=== PATIENT | female | born 1985 | race Caucasian/White ===

== ENCOUNTER 2018-10-16 11:40 | Emergency (ER) | payer BC, OTHER ==
[~2018-10-16] VITALS: Ht 157.5 cm; Wt 142.0 kg
--- OUTSIDE RECORDS SUMMARY | 2018-10-16 11:45 | XMS REPORT | Continuity of Care Document ---
Author Organization Unknown Address Unknown Phone Unavailable Allergies There is no data. Medications There is no data. Problems There is no data. Procedures There is no data. Results Test Result Range TESTOSTERONE, TOTAL, LC/MS/MS - 12/18/16 12:28 TESTOSTERONE, TOTAL, LC/MS/MS 43 ng/dL 2-45 BMP - 04/09/17 11:59 GLUCOSE 100 mg/dL 65-99 UREA NITROGEN (BUN) 10 mg/dL 7-25 CREATININE 0.64 mg/dL 0.50-1.10 eGFR NON-AFR. CUBAN 117 mL/min/1.73m2 > OR=60 eGFR 136 mL/min/1.73m2 > OR=60 BUN/CREATININE RATIO NOT APPLICABLE (calc) 6-22 SODIUM 136 mmol/L 135-146 POTASSIUM 4.2 mmol/L 3.5-5.3 CHLORIDE 99 mmol/L 98-110 CARBON DIOXIDE 28 mmol/L 20-31 CALCIUM 10.0 mg/dL 8.6-10.2 CULTURE, ANAEROBIC AND AEROBIC - 06/16/18 10:35 CULTURE, ANAEROBIC BACTERIA W/GRAM STAIN SEE NOTE NRG CULTURE, AEROBIC BACTERIA SEE NOTE NRG CBC - 07/06/18 08:11 WHITE BLOOD CELL COUNT 9.5 Thousand/uL 3.8-10.8 RED BLOOD CELL COUNT 5.70 Million/uL 3.80-5.10 HEMOGLOBIN 15.4 g/dL 11.7-15.5 HEMATOCRIT 47.0 % 35.0-45.0 MCV 82.5 fL 80.0-100.0 MCH 27.0 pg 27.0-33.0 MCHC 32.8 g/dL 32.0-36.0 RDW 14.2 % 11.0-15.0 PLATELET COUNT 313 Thousand/uL 140-400 MPV 10.5 fL 7.5-12.5 ABSOLUTE NEUTROPHILS 6042 cells/uL 2087-1996 ABSOLUTE LYMPHOCYTES 2708 cells/uL 850-3900 ABSOLUTE MONOCYTES 589 cells/uL 200-950 ABSOLUTE EOSINOPHILS 133 cells/uL 15-500 ABSOLUTE BASOPHILS 29 cells/uL 0-200 NEUTROPHILS 63.6 % NRG LYMPHOCYTES 28.5 % NRG MONOCYTES 6.2 % NRG EOSINOPHILS 1.4 % NRG BASOPHILS 0.3 % NRG TSH - 07/06/18 08:11 TSH 6.45 mIU/L NRG A1C - 07/06/18 08:11 HEMOGLOBIN A1c 8.6 % of total Hgb <5.7 Encounters ACCT No. Visit Date/Time Discharge Status Pt. Type Provider Facility Loc./Unit Complaint [id number] 10/10/2018 16:30:00 10/10/2018 23:59:59 [facility] Outpatient FRANCISCO ARREDONDO [facility] [id number] 07/06/2018 08:15:00 Document Registration [id number] 06/16/2018 08:50:00 Document Registration [id number] 04/09/2017 11:00:00 Document Registration [id number] 12/18/2016 11:00:00 Document Registration
--- OUTSIDE RECORDS SUMMARY | 2018-10-16 11:45 | XMS REPORT ---
Author Author KARLEE MATHEWS [facility] Address [address] [place] [address] Care Team Providers Care General Pediatrician Name Role Phone KARLEE MATHEWS Unavailable PROBLEMS Type Condition ICD9-CM Code [id number] Code Onset Dates Condition Status SNOMED Code Problem Abnormal bleeding in menstrual cycle N93.9 Active 157219622 Problem Polymenorrhea N92.0 Active 15163276 Problem Polycystic ovarian syndrome E28.2 Active 77692550 Problem Essential hypertension I10 Active [id number] ALLERGIES No Known Allergies ENCOUNTERS Encounter Location Date Diagnosis [address] [id number] [place] [id number] Mar, Polymenorrhea N92.0 and Essential hypertension I10 [facility] [place] [address] [place] [address] [id number] [place] [id number] Feb, Polymenorrhea N92.0 and Essential hypertension I10 [facility] [address] [id number] [place] [id number] Dec, Abnormal bleeding in menstrual cycle N93.[address] [id number] [place] [id number] Dec, Polymenorrhea N92.0 ; Essential hypertension I10 ; Tobacco use Z72.0 and Polycystic ovarian syndrome E28.2 IMMUNIZATIONS No Known Immunizations SOCIAL HISTORY Never Assessed REASON FOR VISIT f/u, [facility] PLAN OF CARE Activity Details Follow Up 6 Weeks Reason:BP rehceck VITAL SIGNS Weight 325.1 lbs 2017-02-26 Temperature 98.7 degrees Fahrenheit 2017-02-26 Heart Rate 96 bpm 2017-02-26 Respiratory Rate 20 2017-02-26 Blood pressure systolic 140 mmHg 2017-02-26 Blood pressure diastolic 96 mmHg 2017-02-26 MEDICATIONS Medication Instructions Dosage Frequency Start Date End Date Duration Status Lisinopril 10 mg Orally Once a day 1 tablet 24h Feb, 90 days Active Metformin HCl 500 mg Orally Twice a day 1 tablet with meals 12h Dec, 30 day(s) Active Varenicline Tartrate 0.5 MG X 11 & 1 MG X 42 Orally as directed as directed Dec, Not-Taking Junel 04/03 1-20 MG-MCG Orally Once a day 1 tablet 24h Dec, 21 day(s) Not-Taking Hydrochlorothiazide 50 mg Orally Once a day /2 tablet 24h 30 day(s) Active Provera 10 mg Orally Once a day day 16-21 of the cycle 1 tablet with food Feb, Mar, 7 days Active RESULTS No Results PROCEDURES No Known procedures INSTRUCTIONS MEDICATIONS ADMINISTERED No Known Medications
--- NOTE | 2018-10-16 12:11 | ED Lower Extremity ---
General Chief Complaint: Lower Extremity Stated Complaint: LT ANKLE PAIN Nursing Triage Note: Patient c/o left ankle pain. States the pain started 4 days ago, she was seen in urgent care but unable to get an xray because their machine was broke. Urgent care wrapped her ankle with an noelle wrap and told her to come to the ED for further evaluation if the pain did not improve. She states that the pain has not improved. Nursing Sepsis Screen: No Definite Risk Source: patient History of Present Illness Date Seen by Provider: Oct 16, 2018 Time Seen by Provider: 11:42 Initial Comments 33 yo F presents with 4 day history of left ankle and foot pain that has progressed for her. She has been seen at Urgent care when the pain started and was told to wrap it. She states they did not have xrays done because they told her the Xray machine was "broken" so they did not do one. She continued to have pain and after walking around the mall at [place] yesterday her ankle hurts worse today so she came to the ED. She has not been taking anything for pain. She also has not been using any ice for inflammation or pain. She has not had any prior injury or problem with her ankle before. She states the pain radiates up to her knee. She is a diabetic and has hypertension as well. She was told not to take Ibuprofen because it would make her blood pressure go high. She has no known injury to her ankle or foot to cause the pain. Allergies and Home Medications Allergies Coded Allergies: No Known Drug Allergies (Unverified , 10/16/18) Home Medications Meloxicam 7.5 Mg Tablet, 7.5 MG PO DAILY Prescribed by: SINDY ADAME on 10/16/18 1245 Patient Home Medication List Home Medication List Reviewed: Yes Review of Systems Constitutional: No chills, No fever EENTM: no symptoms reported Respiratory: no symptoms reported Cardiovascular: no symptoms reported Gastrointestinal: no symptoms reported Genitourinary: no symptoms reported Musculoskeletal: see HPI Skin: other (faint bruise to top of left foot on medial aspect of foot where she is having pain.) Past Necnrwd-Zuwsdp-Qasqru Hx Past Med/Social Hx: Reviewed Nursing Past Med/Soc Hx Patient Social History Recent Foreign Travel: No Contact w/Someone Who Travel: No Recent Infectious Disease Expo: No Physical Abuse: No Sexual Abuse: No Mistreated: No Fear: No Past Medical History High Cholesterol, Hypertension Diabetes, Non-Insulin dep Physical Exam Vital Signs Vital Signs - First Documented 10/16/18 11:47 Temp 97.9 Pulse 97 Resp 18 B/P (MAP) 151/96 (114) Pulse Ox 94 O2 Delivery Room Air Capillary Refill : Less Than 3 Seconds Height, Weight, BMI Height: 5'2.00" Weight: 313lbs. oz. 141.596941za; BMI Method:Stated General Appearance: WD/WN, no apparent distress, obese Cardiovascular: normal peripheral pulses Knees: left knee non-tender, left knee normal inspection, left knee no evidence of injury Ankles: left ankle pain (pain with range of motion of the left ankle and foot), left ankle soft tissue tenderness Feet: left foot ecchymosis (faint bruise to proximal foot on medial aspect that is tender to palpation), left foot pain (pain with range of motion of the left ankle and foot), left foot soft tissue tenderness Neurologic/Tendon: normal sensation (intact to light touch), normal motor functions 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: alert, normal mood/affect, oriented x 3 Skin: normal color, warm/dry Progress/Results/Core Measures Results/Orders My Orders Orders - SINDY ADAME MD Ankle 3 View Left (10/16/18 12:01) Foot 3 View Left (10/16/18 12:01) Gel Ankle Brace (10/16/18 12:56) Crutches (10/16/18 12:56) Vital Signs/I&O 10/16/18 10/16/18 11:47 13:14 Temp 97.9 97.9 Pulse 97 97 Resp 18 18 B/P (MAP) 151/96 (114) 151/96 (114) Pulse Ox 94 94 O2 Delivery Room Air Blood Pressure Mean: 114 Progress Progress Note #1: Progress Note check xrays of the left ankle and foot to evaluate for occult injury or bony abnormality with her being diabetic and hypertensive and obese it is possible she could have some neuropathy and have had some injury that she does not remember or a stress type injury/fracture causing her pain. Counseled pt that if nothing shows on the films she may need more of an MRI or more advance imaging with Jil Arredondo in clinic or Orthopedics referral to look at ligaments and tendons for other source of her pain. Would place in splint for support and provide crutches in the meantime. Counseled that she should be fine to take some intermittent dosing of Ibuprofen for pain and inflammation. Ice and elevation should also help with her pain and any swelling that would develop to contribute to her pain and issues with her ankle and foot. Progress Note #2: Progress Note No acute abnormality on films so will treat with gel splint and crutches for weight bearing as tolerated and meloxicam for inflammation. check in clinic with AMOS Arredondo and follow up. Diagnostic Imaging Diagonstic Imaging: Xray Plain Films/CT/US/NM/MRI: ankle (and foot) Comments NAME: MARYJANE BREAUX MED REC#: [id number] PT STATUS: REG ER : 1985 PHYSICIAN: SINDY ADAME MD ADMIT DATE: 10/16/18/ER FS Draft Date of Exam:10/16/18 FOOT 3 VIEW LEFT INDICATION: Left foot and ankle pain. No known injury FINDINGS: Four views of the left foot shows no fracture, dislocation or other acute bony abnormality. No degenerative changes are seen. There are no bony erosions. IMPRESSION: No acute abnormality is seen. Dictated on workstation # [id number] Dict: 10/16/18 1224 Trans: 10/16/18 1230 IVAN [id number] Interpreted by: LAMONTE ELLIS MD Electronically signed by: NAME: MARYJANE BREAUX MED REC#: [id number] PT STATUS: REG ER : 1985 PHYSICIAN: SINDY ADAME MD ADMIT DATE: 10/16/18/ER FS Draft Date of Exam:10/16/18 ANKLE 3 VIEW LEFT INDICATION: Left foot and ankle pain. No history of trauma. TECHNIQUE: 3 views. FINDINGS: The left ankle shows ankle mortise to be intact with good preservation of joint space. Thickening surfaces are smooth. There are no fracture. No finding to indicate osteochondritis dissecans. No soft tissue swelling. IMPRESSION: Negative left ankle. Dictated on workstation # [id number] Dict: 10/16/18 1225 Trans: 10/16/18 1230 ACB [id number] Interpreted by: RAJENDRA AVILA MD Electronically signed by: Departure Impression Primary Impression: Sprain of other ligament of left ankle, initial encounter Additional Impression: Other sprain of left foot, initial encounter Disposition: 01 HOME, SELF-CARE Condition: Stable Departure-Patient Inst. Decision time for Depature: 12:41 Referrals: FRANCISCO ARREDONDO APRN (PCP) Primary Care Physician Patient Instructions: Ankle Sprain (DC), Foot Sprain (DC), How to Use Crutches Add. Discharge Instructions: Use splint to help support your ankle and foot. Use crutches for weight bearing as tolerated on your ankle and foot. Follow up with Jil Arredondo in the clinic for further evaluation Use Mobic for inflammation and pain for the next 2 weeks All discharge instructions reviewed with patient and/or family. Voiced understanding. Scripts Meloxicam (Meloxicam) 7.5 Mg Tablet 7.5 MG PO DAILY for 14 Days, #14 TAB 0 Refills Prov: SINDY ADAME MD 10/16/18 SINDY ADAME MD Oct 16, 2018 12:11
--- NOTE | 2018-10-16 12:30 | Diagnostic Imaging Report ---
INDICATION: Left foot and ankle pain. No history of trauma. TECHNIQUE: 3 views. FINDINGS: The left ankle shows ankle mortise to be intact with good preservation of joint space. Thickening surfaces are smooth. There are no fracture. No finding to indicate osteochondritis dissecans. No soft tissue swelling. IMPRESSION: Negative left ankle. Dictated by: Dictated on workstation # [id number]
--- NOTE | 2018-10-16 12:31 | Diagnostic Imaging Report ---
INDICATION: Left foot and ankle pain. No known injury FINDINGS: Four views of the left foot shows no fracture, dislocation or other acute bony abnormality. No degenerative changes are seen. There are no bony erosions. IMPRESSION: No acute abnormality is seen. Dictated by: Dictated on workstation # [id number]
[2018-10-16] MEDS ORDERED: MELO7.5T46 PO (12:45)
[2018-10-16 13:14] VITALS: BP 151/96
== END 2018-10-16 13:13 | disposition home or self-care (01) ==
LOC: ER FS 11:42
DX: S93.492A Sprain of other ligament of left ankle, initial encounter (principal); S93.692A Other sprain of left foot, initial encounter; E11.9 Type 2 diabetes mellitus without complications; I10 Essential (primary) hypertension; E78.00 Pure hypercholesterolemia, unspecified; X58.XXXA Exposure to other specified factors, initial encounter
CPT/HCPCS: 73610; 73630

== ENCOUNTER 2020-02-07 16:11 | Emergency (ER) | payer SELFPAY ==
[~2020-02-07 16:11] MED LIST: MELO7.5T46 PO
[2020-02-07] MEDS ORDERED: ACHD5005 PO (17:20)
--- NOTE | 2020-02-07 17:20 | ED EENT ---
History of Present Illness General Chief Complaint: Dental Problems/Pain Stated Complaint: TOOTH PAIN Nursing Triage Note: Started having tooth pain in Right upper and Right lower jaw 3 days ago. Went to urgent care two days ago and was started on antibiotic and magic mouth wash. Is rating pain at 10/10. Has been taking tylenol and naproxen for pain with little relief. Cold water in mouth helps with pain relief. Has impacted wisdom tooth on upper jaw and needs a root canal on lower jaw but has been unable to go to dentist for these issues. History of Present Illness Date Seen by Provider: Feb 07, 2020 Time Seen by Provider: 17:10 Initial Comments Patient presents with right-sided dental pain for 3 days both upper and lower. Chronic condition without any recent injury or significant change. Started on Augmentin 2 days ago from someone at the urgent care, but presenting today due to pain and little relief with czja-xzz-frpeqsc medications. Does not have an appointment to see a dentist. History of similar conditions in the past. No facial swelling or redness, no neck swelling or pain. Allergies and Home Medications Allergies Coded Allergies: No Known Drug Allergies (Unverified , 10/16/18) Home Medications Hydrocodone/Acetaminophen 1 Each Tablet, 1 EACH PO Q4H Prescribed by: DONNIE HUI on 02/07/20 1720 Meloxicam 7.5 Mg Tablet, 7.5 MG PO DAILY Prescribed by: SINDY ADAME on 10/16/18 1245 Patient Home Medication List Home Medication List Reviewed: Yes Review of Systems Review of Systems Constitutional: No dizziness, No fever, No malaise, No weakness Eyes: No Symptoms Reported Ears: No Symptoms Reported Nose: no symptoms reported Mouth: see HPI; denies loose teeth; pain; denies swelling Throat: see HPI, pain (teeth); denies swelling, denies discharge, denies neck stiffness, denies hoarse, denies aphonia, denies muffled, denies painful swallowing, denies difficulty with fluids, denies previous injury Respiratory: No cough, No dyspnea on exertion Cardiovascular: No chest pain, No edema, No palpitations Past Ztylxil-Nwpeed-Smearc Hx Past Med/Social Hx: Reviewed Nursing Past Med/Soc Hx Patient Social History Alcohol Use: Denies Use Recreational Drug Use: No Smoking Status: Current Everyday Smoker Type Used: Cigarettes 2nd Hand Smoke Exposure: No Recent Foreign Travel: No Contact w/Someone Who Travel: No Recent Infectious Disease Expo: No Recent Hopitalizations: No Seasonal Allergies Seasonal Allergies: No Past Medical History Surgeries: No Respiratory: No Cardiac: Yes High Cholesterol, Hypertension Neurological: No Genitourinary: No Gastrointestinal: No Musculoskeletal: No Endocrine: Yes Diabetes, Non-Insulin dep HEENT: No Cancer: No Psychosocial: No Integumentary: No Blood Disorders: No Physical Exam Vital Signs Vital Signs - First Documented 02/07/20 16:28 Temp 36.7 Pulse 93 Resp 16 B/P (MAP) 151/88 (109) Pulse Ox 96 Height, Weight, BMI Height: 5'2.00" Weight: 313lbs. oz. 141.791849uv; BMI Method:Stated General Appearance: WD/WN, no apparent distress Eyes: bilateral eye normal inspection, bilateral eye PERRL, bilateral eye EOMI Ears: bilateral ear auricle normal, bilateral ear canal normal, bilateral ear TM normal Nose: normal inspection; No discharge Mouth/Throat: pharynx normal, dental tenderness (R upper post molar and R lower post molar without abscess. mild swelling gingiva. Obvious cavity formation both upper and lower.) Neck: non-tender, supple, normal inspection; No lymphadenopathy (R) Skin: normal color, warm/dry Progress/Results/Core Measures Results/Orders Vital Signs/I&O 02/07/20 02/07/20 16:28 17:37 Temp 36.7 Pulse 93 73 Resp 16 16 B/P (MAP) 151/88 (109) 152/83 Pulse Ox 96 96 Blood Pressure Mean: 109 Departure Impression Primary Impression: Dental caries Additional Impression: Pain, dental Disposition: HOME, SELF-CARE Condition: Stable Departure-Patient Inst. Decision time for Depature: 17:18 Referrals: FRANCISCO ARREDONDO APRN (PCP) Primary Care Physician Patient Instructions: Dental Pain (DC) Add. Discharge Instructions: Follow up with your Dentist next week. Continue taking your antibiotic as instructed All discharge instructions reviewed with patient and/or family. Voiced understanding. Scripts Hydrocodone/Acetaminophen (Hydrocodone-Acetamin 5-325 mg) 1 Each Tablet 1 EACH PO Q4H for Abdominal Pain, #10 TAB Prov: DONNIE HUI DO 02/07/20 DONNIE HUI DO Feb 07, 2020 17:20
[2020-02-07 17:37] VITALS: BP 152/83
== END 2020-02-07 17:37 | disposition home or self-care (01) ==
LOC: EDUNIT# 16:11 → ER FS 16:11
DX: K02.9 Dental caries, unspecified (principal); F17.210 Nicotine dependence, cigarettes, uncomplicated
CPT/HCPCS: 99282

== ENCOUNTER 2020-08-20 20:21 | Emergency (ER) | payer SELFPAY ==
[~2020-08-20 20:21] MED LIST changes: +ACHD5005 PO
--- NOTE | 2020-08-20 20:59 | ED Upper Extremity ---
General Chief Complaint: Upper Extremity Stated Complaint: LT SHOULDER/ARM ACHING Nursing Triage Note: Pt complaining of left lower arm pain that radiates to her left shoulder. Pt states the pain started around 2300 last night and progressed throughout the day today Nursing Sepsis Screen: No Definite Risk History of Present Illness Date Seen by Provider: Aug 20, 2020 Time Seen by Provider: 20:43 Initial Comments 35 y/o female w left upper back and shoulder pain since last night. Worse w movement, better by positional changes. Has taken nothing for pain. 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 Denies any injury, recent illness, cough, chest pain or shortness of air. Some radiation of pain from back and shoulder into right arm and hand. Hx of DM and HTN...readily admits she has not taken any of her medications for a month. not out of medication either Allergies and Home Medications Allergies Coded Allergies: No Known Drug Allergies (Unverified , 10/16/18) Home Medications Hydrocodone/Acetaminophen 1 Each Tablet, 1 EACH PO Q4H Prescribed by: DONNIE HUI on 02/07/20 1720 Meloxicam 7.5 Mg Tablet, 7.5 MG PO DAILY Prescribed by: SINDY ADAME on 10/16/18 1245 Patient Home Medication List Home Medication List Reviewed: Yes Review of Systems Constitutional: see HPI; No fever, No malaise, No weakness Respiratory: No cough, No hemoptysis, No orthopnea, No phlegm, No short of breath, No stridor, No wheezing Cardiovascular: No chest pain, No edema, No palpitations, No syncope, No vascular heart diseas Gastrointestinal: No abdominal pain, No loss of appetite, No nausea, No vomiting Musculoskeletal: back pain (left upper); No joint pain; muscle pain (left shoulder area ); No muscle weakness, No neck pain Skin: No change in color, No rash Psychiatric/Neurological: Denies Numbness, Denies Paresthesia; Tingling; Denies Weakness Past Eilzddv-Jslvjc-Szdozd Hx Past Med/Social Hx: Reviewed Nursing Past Med/Soc Hx Patient Social History Alcohol Use: Denies Use Type Used: Cigarettes 2nd Hand Smoke Exposure: No Recent Infectious Disease Expo: No Recent Hopitalizations: No Seasonal Allergies Seasonal Allergies: No Past Medical History Surgeries: No Respiratory: No Cardiac: Yes High Cholesterol, Hypertension Neurological: No Genitourinary: No Gastrointestinal: No Musculoskeletal: No Endocrine: Yes Diabetes, Non-Insulin dep HEENT: No Cancer: No Psychosocial: No Integumentary: No Blood Disorders: No Physical Exam Vital Signs Vital Signs - First Documented 08/20/20 20:23 Temp 37.0 Pulse 94 Resp 18 B/P (MAP) 171/80 (110) Pulse Ox 97 O2 Delivery Room Air Capillary Refill : Less Than 3 Seconds Height, Weight, BMI Height: 5'2.00" Weight: 313lbs. oz. 141.780214qv; BMI Method:Stated General Appearance: WD/WN, no apparent distress, obese Neck: non-tender, full range of motion, supple, normal inspection Cardiovascular: regular rate, rhythm, no edema, no gallop, no JVD Respiratory: chest non-tender, lungs clear, normal breath sounds, no respiratory distress, no accessory muscle use Gastrointestinal: non tender, soft Back: normal inspection, no vertebral tenderness, muscle spasm (left upper trapez and medial scapula) Shoulder: normal inspection, no evidence of injury, normal ROM (but uncomfortable to move) Elbow/Forearm: normal inspection, non-tender, no evidence of injury, normal ROM, Left Wrist: Yes normal inspection, Yes non-tender, Yes no evidence of injury, Yes normal ROM, Yes abrasions Hand: normal inspection, non-tender, no evidence of injury, normal ROM, Left Neurologic/Tendon: normal sensation, normal motor functions, normal tendon functions 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: no motor/sensory deficits, alert, normal mood/affect, oriented x 3 Skin: normal color, warm/dry Progress/Results/Core Measures Results/Orders Vital Signs/I&O 08/20/20 20:23 Temp 37.0 Pulse 94 Resp 18 B/P (MAP) 171/80 (110) Pulse Ox 97 O2 Delivery Room Air Blood Pressure Mean: 110 Departure Impression Primary Impression: Muscle strain of upper back Disposition: 01 HOME, SELF-CARE Condition: Stable Departure-Patient Inst. Decision time for Depature: 20:59 Referrals: FRANCISCO ARREDONDO APRN (PCP/Family) Primary Care Physician Patient Instructions: Back Muscle Strain (DC) Add. Discharge Instructions: Please make an appointment to see your PCP in 1 week, sooner if not improving. If worse, return to the nearest ER. Please RE-start all of your prescribed medications as instructed by your PCP All discharge instructions reviewed with patient and/or family. Voiced understanding. Scripts Cyclobenzaprine HCl (Cyclobenzaprine HCl) 10 Mg Tablet 10 MG PO HS PRN for SPASMS, #15 TAB 0 Refills Prov: DONNIE HUI DO 08/20/20 DONNIE HUI DO Aug 20, 2020 20:59
[2020-08-20] MEDS ORDERED: CYCL10TA9 PO (21:00)
[2020-08-20 21:01] VITALS: BP 171/80
== END 2020-08-20 21:03 | disposition home or self-care (01) ==
LOC: EDUNIT# 20:21 → ER FS 20:22
DX: S29.012A Strain of muscle and tendon of back wall of thorax, initial encounter (principal); E66.9 Obesity, unspecified; I10 Essential (primary) hypertension; E11.9 Type 2 diabetes mellitus without complications; Z68.45 Body mass index [BMI] 70 or greater, adult; X58.XXXA Exposure to other specified factors, initial encounter
CPT/HCPCS: 99282

== ENCOUNTER 2022-11-08 19:26 | Inpatient (IN) | payer BC ==
[~2022-11-08] VITALS: Ht 160.7 cm; Wt 148.3 kg
[~2022-11-08 19:26] MED LIST changes: +CYCL10TA25 PO
[2022-11-08] MEDS ORDERED: LABETALOL 5 mg/ml 4 ML SINGLE DOSE SYRINGE IV ONE ×2 (19:45→20:30)
[2022-11-08 19:47] LABS: BASOPHILS # (AUTO) 0.1 10^3/uL (0.0-0.1); BASOPHILS % (AUTO) 0 % (0-10); EOSINOPHILS % (AUTO) 0 % (0-10); HEMATOCRIT 46 % (35-52); HEMOGLOBIN 15.3 g/dL (11.5-16.0); LYMPHOCYTES # (AUTO) 2.7 10^3/uL (1.0-4.0); LYMPHOCYTES % (AUTO) 23 % (12-44); MEAN CORPUSCULAR HEMOGLOBIN 28 pg (25-34); MEAN CORPUSCULAR HGB CONC 34 g/dL (32-36); MEAN CORPUSCULAR VOLUME 84 fL (80-99); MEAN PLATELET VOLUME 9.8 fL (9.0-12.2); MONOCYTES # (AUTO) 0.6 10^3/uL (0.0-1.0); MONOCYTES % (AUTO) 5 % (0-12); NEUTROPHILS # (AUTO) 8.4 10^3/uL (1.8-7.8); NEUTROPHILS % (AUTO) 71 % (42-75); PLATELET COUNT 244 10^3/uL (130-400); WHITE BLOOD COUNT 11.9 10^3/uL (4.3-11.0)
--- NOTE | 2022-11-08 19:47 | ED Neurological Problem ---
General Stated Complaint: LEFT SIDE NUMB|ABD PAIN Source: patient Exam Limitations: no limitations History of Present Illness Date Seen by Provider: Nov 08, 2022 Time Seen by Provider: 19:30 Initial Comments 37-year-old female with past medical history of diabetes and hypertension coming in due to left-sided numbness. It started at 1 AM this morning mostly in her leg, worked its way up throughout the day, now she has change in sensation in her left arm as well more than 8 hours ago. She says its more difficult to feel cold on that side. Has a mild headache which is not unusual. She states she has not been taking her blood pressure or diabetes medications for months because of money issues. Denies any trauma, chest pain, shortness of breath, severe abdominal pain, nausea, vomiting, diarrhea, focal weakness, or any other concerns. She does not have regular periods since she has PCOS. Allergies and Home Medications Allergies Coded Allergies: No Known Drug Allergies (Unverified , 10/16/18) Patient Home Medication List Home Medication List Reviewed: Yes Cyclobenzaprine HCl (Cyclobenzaprine HCl) 10 Mg Tablet, 10 MG PO HS PRN for SP ASMS Prescribed by: DONNIE HUI on 08/20/20 2100 Hydrocodone/Acetaminophen (Hydrocodone-Acetamin 5-325 mg) 1 Each Tablet, 1 EACH PO Q4H Prescribed by: DONNIE HUI on 02/07/20 1720 Meloxicam (Meloxicam) 7.5 Mg Tablet, 7.5 MG PO DAILY Prescribed by: SINDY ADAME on 10/16/18 1245 Review of Systems Review of Systems Constitutional: No fever Eyes: No Symptoms Reported Ears, Nose, Mouth, Throat: no symptoms reported Respiratory: no symptoms reported Cardiovascular: no symptoms reported Gastrointestinal: no symptoms reported Genitourinary: no symptoms reported Musculoskeletal: no symptoms reported Skin: no symptoms reported Psychiatric/Neurological: See HPI Endocrine: No Symptoms Reported Hematologic/Lymphatic: No Symptoms Reported Past Joxibbs-Ismuun-Htzbqs Hx Patient Social History Tobacco Use?: Yes Seasonal Allergies Seasonal Allergies: No Past Medical History Surgeries: No Respiratory: No Cardiac: Yes High Cholesterol, Hypertension Neurological: No Genitourinary: No Gastrointestinal: No Musculoskeletal: No Endocrine: Yes Diabetes, Non-Insulin dep HEENT: No Cancer: No Psychosocial: No Integumentary: No Blood Disorders: No Physical Exam Vital Signs Vital Signs - First Documented 11/08/22 19:28 Temp 35.6 Pulse 97 Resp 18 B/P (MAP) 257/123 (167) Pulse Ox 94 O2 Delivery Room Air Capillary Refill : Height, Weight, BMI Height: 5'2.00" Weight: 313lbs. oz. 141.491773ml; BMI Method:Stated General Appearance: no apparent distress, obese HEENT: PERRL/EOMI, normal ENT inspection, pharynx normal Neck: non-tender, full range of motion, supple, normal inspection Respiratory: chest non-tender, lungs clear, normal breath sounds, no respiratory distress, no accessory muscle use Cardiovascular: regular rate, rhythm, no edema, no murmur Gastrointestinal: normal bowel sounds, non tender, soft; No distended, No guarding, No rebound Back: normal inspection, no CVA tenderness, no vertebral tenderness Extremities: normal range of motion, non-tender, normal inspection, no pedal edema, no calf tenderness, normal capillary refill 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: 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, alert, normal mood/affect, oriented x 3, other (Left-sided sensation changes in her left upper extremity and left lower extremity, has normal two-point discrimination in both extremities) Crainal Nerves: normal hearing, normal speech, PERRL Coordination/Gait: normal finger to nose, normal gait Motor/Sensory: no motor deficit, no sensory deficit, no pronator drift Skin: normal color, warm/dry Stroke Onset of Symptoms Date of Onset of Symptoms: Nov 08, 2022 Time of Symptom Onset: 01:00 Onset of Symptoms: Yes NIH Stroke Scale Assessment Select: Initial Level of Consciousness: 0=Alert (0), Level of Consciousness- Questions: 0=Answers both month/age (0), LOC Commands: 0=Performs both tasks (0), Gaze: Normal (0), Visual Tanner: 0=No visual loss (0), Facial Movement (Facial Paresis): 0=Normal symmetrical mnt (0), Motor Function-Arms Right: 0=No drift (0), Motor Function-Arms Left: 0=No drift (0), Motor Function-Legs Right: 0=No drift (0), Motor Function-Legs Left: 0=No drift (0), Limb Ataxia: 0=Absent (0), Sensory: 1=Mild to Moderate loss (1), Best Language: 0=No aphas ia (0), Dysarthria: 0=Normal (0), Extinction & Inattention: 0=No abnormality (0), Total: 1 Stroke Thrombolytic Exclusion Age 18 or Over: Yes TPA Contraindication: Yes IV - TPa Received IV - TPa Procedure Performed?: No Progress/Results/Core Measures Results/Orders Lab Results Laboratory Tests Test 11/08/22 19:39 11/08/22 19:42 11/08/22 19:53 Range/Units Glucometer 319 H 70-110 MG/DL White Blood Count 11.9 H 4.3-11.0 10^3/uL Red Blood Count 5.40 H 3.80-5.11 10^6/uL Hemoglobin 15.3 11.5-16.0 g/dL Hematocrit 46 35-52 % Mean Corpuscular Volume 84 80-99 fL Mean Corpuscular Hemoglobin 28 25-34 pg Mean Corpuscular Hemoglobin Concent 34 32-36 g/dL Red Cell Distribution Width 12.9 10.0-14.5 % Platelet Count 244 130-400 10^3/uL Mean Platelet Volume 9.8 9.0-12.2 fL Immature Granulocyte % (Auto) 0 % Neutrophils (%) (Auto) 71 42-75 % Lymphocytes (%) (Auto) 23 12-44 % Monocytes (%) (Auto) 5 0-12 % Eosinophils (%) (Auto) 0 0-10 % Basophils (%) (Auto) 0 0-10 % Neutrophils # (Auto) 8.4 H 1.8-7.8 10^3/uL Lymphocytes # (Auto) 2.7 1.0-4.0 10^3/uL Monocytes # (Auto) 0.6 0.0-1.0 10^3/uL Eosinophils # (Auto) 0.0 0.0-0.3 10^3/uL Basophils # (Auto) 0.1 0.0-0.1 10^3/uL Immature Granulocyte # (Auto) 0.1 0.0-0.1 10^3/uL Prothrombin Time 12.0 L 12.2-14.7 SEC INR Comment 0.8 0.8-1.4 Activated Partial Thromboplast Time 28 24-35 SEC Sodium Level 132 L 135-145 MMOL/L Potassium Level 4.2 3.6-5.0 MMOL/L Chloride Level 96 L 98-107 MMOL/L Carbon Dioxide Level 24 21-32 MMOL/L Anion Gap 12 5-14 MMOL/L Blood Urea Nitrogen 9 7-18 MG/DL Creatinine 0.68 0.60-1.30 MG/DL Estimat Glomerular Filtration Rate 114 BUN/Creatinine Ratio 13 Glucose Level 362 H 70-105 MG/DL Calcium Level 10.0 8.5-10.1 MG/DL Corrected Calcium 9.8 8.5-10.1 MG/DL Total Bilirubin 0.2 0.1-1.0 MG/DL Aspartate Amino Transf (AST/SGOT) 19 5-34 U/L Alanine Aminotransferase (ALT/SGPT) 34 0-55 U/L Alkaline Phosphatase 103 40-136 U/L Troponin I < 0.30 <0.30 NG/ML Total Protein 7.4 6.4-8.2 GM/DL Albumin 4.2 3.2-4.5 GM/DL Serum Test, Qualitative NEGATIVE NEGATIVE Urine Color YELLOW Urine Clarity CLEAR Urine pH 7.0 5-9 Urine Specific [place] 1.010 L 1.016-1.022 Urine Protein NEGATIVE NEGATIVE Urine Glucose (UA) 3+ H NEGATIVE Urine Ketones NEGATIVE NEGATIVE Urine Nitrite NEGATIVE NEGATIVE Urine Bilirubin NEGATIVE NEGATIVE Urine Urobilinogen 0.2 < = 1.0 MG/DL Urine Leukocyte Esterase NEGATIVE NEGATIVE Urine RBC (Auto) NEGATIVE NEGATIVE Urine RBC RARE /HPF Urine WBC RARE /HPF Urine Squamous Epithelial Cells 0-2 /HPF Urine Crystals NONE /LPF Urine Bacteria FEW H /HPF Urine Casts NONE /LPF Urine Mucus NEGATIVE /LPF Urine Culture Indicated NO My Orders Orders - LUIS MURILLO MD Cbc With Automated Diff (11/08/22 19:40) Protime With Inr (11/08/22 19:40) Partial Thromboplastin Time (11/08/22 19:40) Comprehensive Metabolic Panel (11/08/22 19:40) Troponin I Fs (11/08/22 19:40) Ua Culture If Indicated (11/08/22 19:40) Chest 1 View Ap/Pa Only (11/08/22 19:40) Ekg Tracing (11/08/22 19:40) Accucheck Stat ONCE (11/08/22 19:40) Ed Iv/Invasive Line Start (11/08/22 19:40) Vital Signs Stroke Patient Q15M (11/08/22 19:40) Ct Head Wo-R/O Stroke (11/08/22 19:40) O2 (11/08/22 19:40) Monitor-Rhythm Ecg Trace Only (11/08/22 19:40) Dysphagia Screening Tool Q10MX1 (11/08/22 19:40) Labetalol Injection (Sdv) (Labetalol Inj (11/08/22 19:45) Hcg,Qualitative Serum (11/08/22 19:47) Labetalol Injection (Sdv) (Labetalol Inj (11/08/22 20:30) Aspirin Chewable Tablet (Aspirin Chewabl (11/08/22 21:00) Medications Given in ED Current Medications Medications Dose Ordered Sig/Salomon Route Start Time Stop Time Status Last Admin Dose Admin Labetalol HCl 20 mg ONCE ONCE IV 11/08/22 19:45 11/08/22 19:46 DC 11/08/22 20:07 20 MG Labetalol HCl 20 mg ONCE ONCE IV 11/08/22 20:30 11/08/22 20:31 DC 11/08/22 20:33 20 MG Vital Signs/I&O 11/08/22 19:28 Temp 35.6 Pulse 97 Resp 18 B/P (MAP) 257/123 (167) Pulse Ox 94 O2 Delivery Room Air Progress Progress Note : Progress Note 37-year-old female with above history coming in due to left-sided numbness. ABCs were intact and vitals were stable on presentation other than her blood pressure which was 250s systolic on arrival with repeat pressures being the same. NIH was 1 for numbness on the left arm and left leg which was mild. Does not fit a lower back issue given the arm numbness as well. She has a very mild headache. She is out of the window for any type of intervention such as tenecteplase given how long she waited to come to the ER. CT head ordered and interpreted by me showing no obvious hemorrhage or large mass. Chest x-ray ordered and interpreted by me showing no obvious pneumonia or pneumothorax. EKG ordered and interpreted by me showing normal sinus rhythm with no acute ischemic changes. Glucose in the 300s here. An IV was placed and basic labs were obtained and were significant for normal kidney function, negative troponin, urinalysis without evidence of infection. I contacted the neurologist at , Dr. Matta, and he recommended lowering the blood pressure to around 170s systolic and seeing if her symptoms get better. We gave her IV labetalol 20 mg x 2 with repeat assessments and blood pressure did come down, symptoms however persisted. At that time the neurologist recommended admission for an MRI of her brain to see if she has had a stroke, he thought it could be lacunar in origin as a small vessel issue. I discussed this with the patient, she is agreeable. I then contacted Dr. Yao who will admit the patient to the intensive care unit under observation status for further evaluation and management. I then contacted the ICU physician for signout Initial ECG Impression Date: Nov 08, 2022 Initial ECG Impression Time: 19:44 Initial ECG Rate: 93 Initial ECG Rhythm: Normal Sinus Comment Narrow QRS, borderline left axis deviation, no STEMI Diagnostic Imaging Diagonstic Imaging: Xray (chest), CT (head) Comments NAME: MARYJANE BREAUX MED REC#: [id number] PT STATUS: REG ER : 1985 PHYSICIAN: LUIS MURILLO MD ADMIT DATE: 11/08/22/ER FS Signed Date of Exam:11/08/22 CHEST 1 VIEW AP/PA ONLY CHEST 1 VIEW AP/PA ONLY Indication: Stroke Comparison: None available. Findings: No focal airspace disease in the visualized lungs. No pleural effusion or pneumothorax. Normal cardiomediastinal silhouette. Large body habitus results in hazy opacities over the lungs. Impression: 1. No acute cardiopulmonary process by portable radiography. Dictated by: Dictated on workstation # [id number] Dict: 11/08/222003 Trans: 11/08/222004 [facility] [id number] Interpreted by: IRENE AVILA MD Electronically signed by: IRENE AVILA MD 11/08/222004 NAME: MARYJANE BREAUX MED REC#: [id number] PT STATUS: REG ER : 1985 PHYSICIAN: LUIS MURILLO MD ADMIT DATE: 11/08/22/ER FS Signed Date of Exam:11/08/22 CT HEAD WO-R/O STROKE PROCEDURE: CT head wo r/o stroke. TECHNIQUE: Multiple contiguous axial images were obtained through the brain without the use of intravenous contrast. Auto Exposure Controls were utilized during the CT exam to meet ALARA standards for radiation dose reduction. INDICATION: Left-sided numbness and hypertension. COMPARISON: None available. FINDINGS: No hyperdense hemorrhage or space-occupying mass. No hydrocephalus or midline shift. The basilar cisterns are normal. Samano-white matter differentiation is well preserved. The mastoid air cells are clear. Paranasal sinuses are normal. No focal osseous abnormality of the calvarium. IMPRESSION: 1. No acute intracranial process. Dictated by: Dictated on workstation # [id number] Dict: 11/08/222006 Trans: 11/08/222007 [facility] [id number] Interpreted by: IRENE AVILA MD Electronically signed by: IRENE AVILA MD 11/08/222007 Critical Care Note Critical Care Start Time: 19:30 Stop Time: 21:05 Total Time (minutes) 34 Progress All time spent being billed for critical care was separate from procedures. The patient required IV medications to lower her blood pressure due to concerns for stroke and she required frequent reassessments and discussion with other physicians Departure Impression Primary Impression: Hypertensive urgency Disposition: 30 STILL A PATIENT Condition: Stable Admissions Decision to Admit Reason: Admit from ER (General) Decision to Admit/Date: Nov 08, 2022 Time/Decision to Admit Time: 20:55 Departure-Patient Inst. Referrals: MIQUEL LAURA MD (PCP/Family) Primary Care Physician LUIS MURILLO MD Nov 08, 2022 19:47
[2022-11-08 20:07] LABS: BILIRUBIN,URINE NEGATIVE (NEGATIVE); CLARITY,URINE CLEAR; COLOR,URINE YELLOW; GLUCOSE, URINE (UA) 3+ (NEGATIVE); KETONES,URINE NEGATIVE (NEGATIVE); LEUKOCYTE ESTERASE ,URINE NEGATIVE (NEGATIVE); NITRITE,URINE NEGATIVE (NEGATIVE); PROTEIN,URINE NEGATIVE (NEGATIVE)
--- NOTE | 2022-11-08 20:07 | Diagnostic Imaging Report ---
CHEST 1 VIEW AP/PA ONLY Indication: Stroke Comparison: None available. Findings: No focal airspace disease in the visualized lungs. No pleural effusion or pneumothorax. Normal cardiomediastinal silhouette. Large body habitus results in hazy opacities over the lungs. Impression: 1. No acute cardiopulmonary process by portable radiography. Dictated by: Dictated on workstation # [id number]
--- NOTE | 2022-11-08 20:10 | Diagnostic Imaging Report ---
PROCEDURE: CT head wo r/o stroke. TECHNIQUE: Multiple contiguous axial images were obtained through the brain without the use of intravenous contrast. Auto Exposure Controls were utilized during the CT exam to meet ALARA standards for radiation dose reduction. INDICATION: Left-sided numbness and hypertension. COMPARISON: None available. FINDINGS: No hyperdense hemorrhage or space-occupying mass. No hydrocephalus or midline shift. The basilar cisterns are normal. Samano-white matter differentiation is well preserved. The mastoid air cells are clear. Paranasal sinuses are normal. No focal osseous abnormality of the calvarium. IMPRESSION: 1. No acute intracranial process. Dictated by: Dictated on workstation # [id number]
[2022-11-08 20:17] LABS: INR 0.8 (0.8-1.4)
[2022-11-08 20:18] LABS: SODIUM 132 MMOL/L (135-145)
[2022-11-08 20:19] LABS: ALANINE AMINOTRANSFERASE 34 U/L (0-55); ALBUMIN 4.2 GM/DL (3.2-4.5); ALKALINE PHOSPHATASE 103 U/L (40-136); BILIRUBIN,TOTAL 0.2 MG/DL (0.1-1.0); BUN/CREATININE RATIO 13; CARBON DIOXIDE 24 MMOL/L (21-32); CHLORIDE 96 MMOL/L (98-107); CREATININE SERUM 0.68 MG/DL (0.60-1.30); GFR ESTIMATED 114; GLUCOSE 362 MG/DL (70-105); POTASSIUM 4.2 MMOL/L (3.6-5.0); TOTAL PROTEIN 7.4 GM/DL (6.4-8.2)
[2022-11-08 20:21] LABS: BACTERIA,URINE FEW /HPF; RBC,URINE RARE /HPF; SQUAMOUS EPITHELIAL CELL,UR 0-2 /HPF; WBC,URINE RARE /HPF
[2022-11-08] MEDS ORDERED: ASPIRIN 81 MG CHEWABLE TABLET PO ONE (21:00)
[2022-11-08] MEDS ORDERED: ACETAMINOPHEN 325 MG TABLET PO PRN (23:30)
[2022-11-08] MEDS ORDERED: BISACODYL 10 MG SUPPOSITORY PR PRN (23:30)
[2022-11-08] MEDS ORDERED: oxyCODONE IMMEDIATE RELEASE 5 MG TABLET PO PRN (23:30)
[2022-11-08] MEDS ORDERED: LACTULOSE SYRUP 10GM/15ML 30ML UDC PO PRN (23:30)
[2022-11-08] MEDS ORDERED: ONDANSETRON 4 MG ORAL DISSOLVE TABLET PO PRN (23:30)
[2022-11-08] MEDS ORDERED: MELATONIN 3 MG TABLET PO PRN (23:30)
[2022-11-08] MEDS ORDERED: ANTACID SUSPENSION 30 ML UDC PO PRN (23:30)
[2022-11-08] MEDS ORDERED: HYDROmorphone INJECTION 2 MG/ML VIAL IV PRN (23:30)
[2022-11-08] MEDS ORDERED: NS IV 500 ML 500 ML IV PRN (23:30)
[2022-11-08] MEDS ORDERED: diphenhydrAMINE 25 MG TABLET PO PRN (23:30)
[2022-11-08] MEDS ORDERED: diphenhydrAMINE INJ 50 MG/ML VIAL IVP PRN (23:30)
--- NOTE | 2022-11-09 00:06 | Tele-ICU Progress Note ---
Progress Note 37F with HTN, DM who has not taken any of her prescribed medciation for several months due to financial contraints admitted with hypertensive urgency/emergency, hyperglycemia and possible CVA. She had the onset of left leg tingling around 0100 which progressed throughout the day, ascending up the leg and then involving the arm. On presentation to ED found to have BP 250/140. CT head negative. Symptoms did persist after BP improved to 170s. She was outside the window for intervention. [facility] neuro was contacted, recommended correcting BP to around 170 - hypertensive urgency/emergency: has received multiple doses of labetalol with improvement. Now on cardene gtt with goal SBP 160-180. - DM: insulin sliding scale, A1C - CVA: symptoms concerning for mild lacunar infarct. If symptoms worsen with improved BP, will liberalize permissive hypertension. Has received ASA. MRI in AM. Patient assessed via real time audiovisual communication system. CCT 8 min Focused Exam Height, Weight, BMI Height: 5'2.00" Weight: 313lbs. oz. 141.428620gy; 363.94 BMI Method:Stated MIQUEL RAMIREZ MD Nov 09, 2022 00:06
[2022-11-09] MEDS: ALPRAZolam 0.5 MG TABLET PO SCH ×4 (00:29→12:35)
[2022-11-09] MEDS ORDERED: RT-ALBUTEROL SULF 2.5 MG/3 ML PRE-MIX VIAL INH PRN (00:30)
[2022-11-09] MEDS: NICARDIPINE IV SCH (02:53)
[2022-11-09] MEDS: NS IV SCH (02:53)
[2022-11-09 04:42] LABS: BASOPHILS % (AUTO) 0 % (0-10); EOSINOPHILS # (AUTO) 0.1 10^3/uL (0.0-0.3); EOSINOPHILS % (AUTO) 1 % (0-10); HEMATOCRIT 46 % (35-52); HEMOGLOBIN 15.4 g/dL (11.5-16.0); LYMPHOCYTES # (AUTO) 4.3 10^3/uL (1.0-4.0); LYMPHOCYTES % (AUTO) 40 % (12-44); MEAN CORPUSCULAR HEMOGLOBIN 29 pg (25-34); MEAN CORPUSCULAR HGB CONC 34 g/dL (32-36); MEAN CORPUSCULAR VOLUME 85 fL (80-99); MEAN PLATELET VOLUME 10.1 fL (9.0-12.2); MONOCYTES # (AUTO) 0.6 10^3/uL (0.0-1.0); MONOCYTES % (AUTO) 6 % (0-12); NEUTROPHILS # (AUTO) 5.6 10^3/uL (1.8-7.8); NEUTROPHILS % (AUTO) 52 % (42-75); PLATELET COUNT 237 10^3/uL (130-400); WHITE BLOOD COUNT 10.8 10^3/uL (4.3-11.0)
[2022-11-09 04:53] LABS: POTASSIUM 4.1 MMOL/L (3.6-5.0)
[2022-11-09 04:54] LABS: CALCIUM 9.3 MG/DL (8.5-10.1)
[2022-11-09 04:56] LABS: TOTAL PROTEIN 7.1 GM/DL (6.4-8.2)
[2022-11-09 04:57] LABS: BILIRUBIN,TOTAL 0.2 MG/DL (0.1-1.0)
[2022-11-09 04:59] LABS: CREATININE SERUM 0.69 MG/DL (0.60-1.30); PHOSPHORUS 3.3 MG/DL (2.3-4.7)
[2022-11-09] MEDS: MAGNESIUM 1 GM/100 ML IVPB 100 ML IV SCH (05:50)
[2022-11-09] MEDS: POTASSIUM CL 10MEQ/50ML IVPB 50 ML IV SCH (05:50)
[2022-11-09] MEDS: POTASSIUM CHLORIDE 20 MEQ TABLET PO SCH (05:50)
[2022-11-09] MEDS: inSUlin ASPART 1 UNIT/0.01 ML (PER UNIT) SC SCH ×4 (06:24→21:05)
[2022-11-09] MEDS: DOCUSATE SODIUM 100 MG CAPSULE PO SCH ×2 (08:31→21:05)
[2022-11-09] MEDS: ENOXAPARIN 60 MG/0.6 ML SYRINGE SC SCH ×2 (08:31→21:04)
[2022-11-09] MEDS ORDERED: ASPIRIN 325 MG TABLET PO SCH (09:00)
[2022-11-09] MEDS ORDERED: RT-ALBUINH INH (10:17)
[2022-11-09] MEDS ORDERED: ACET-2267 PO (10:17)
--- NOTE | 2022-11-09 10:35 | Tele-ICU Progress Note ---
Subjective Date Seen by a Provider: Nov 09, 2022 Time Seen by a Provider: 10:35 Subjective/Events-last exam (Tele-ICU Physician , Progress Note ) Service provided via interactive audio and video telecommunications E-CARE system to a patient admitted to ICU bed in [facility]. Patient is seen today due to persistent need of ICU care Available chart/ vitals / labs / Images reviewed Video assessment done using teleICU camera, rest of exam as per RN Discussed with RN Events overnight : , seen br Dr Ramirez earlier this night A/P 37F with HTN, DM who has not taken any of her prescribed medciation for several months due to financial contraints admitted with hypertensive urgency/emergency, hyperglycemia and possible CVA. She had the onset of left leg tingling around 0100 which progressed throughout the day, ascending up the leg and then involving the arm. On presentation to ED found to have BP 250/140. CT head negative. Symptoms did persist after BP improved to 170s. She was outside the window for intervention. [facility] neuro was contacted, recommended correcting BP to around 170 - hypertensive urgency/emergency: has received multiple doses of labetalol with improvement. Now on cardene gtt with goal SBP 160-180. - DM: insulin sliding scale, A1C - CVA: symptoms concerning for mild lacunar infarct. If symptoms worsen with improved BP, will liberalize permissive hypertension. Has received ASA. MRI pending - [facility] - onserved , needs w/up Lines : periph , (Central Line Necessity Reviewed) Lema: voley OG: Nutrition: Analgesia: Anxiety/ delirium VTE Prophylaxis: margo proph Stress Ulcer Prophylaxis: Plans in collaboration with bedside consultants and IM MDs. Discussed with RN to reach out if any questions or concerns Case and care daily discussed on multidisciplinary rounds ( RN, PharmD, Weight Engineer , Respiratory Therapy, driver/sales workers ) A total of 25 minutes of critical care time was devoted to this patient today, required to treat and/or prevent further deterioration of critical care condition ( as above ) - including Dr RAMIREZ time last night I am remotely monitoring this patient from another state. I am unable to do the bedside exam, and history/physical and pertinent information is taken from other notes in the computer and bedside staff. Sepsis Event Evaluation Height, Weight, BMI Height: 5'2.00" Weight: 313lbs. oz. 141.265661dd; 54.64 BMI Method:Stated Exam Exam Patient acknowledged, consented, and participated in this virtual visit which was conducted using real time audio/video Vital Signs Date Time Temp Pulse Resp B/P (MAP) Pulse Ox O2 Delivery O2 Flow Rate FiO2 11/09/22 10:00 77 22 187/115 (139) 97 Room Air 11/09/22 09:00 65 174/101 (125) 98 Room Air 11/09/22 08:00 35.6 11/09/22 08:00 98 Room Air 11/09/22 08:00 64 172/113 (132) 98 Room Air 11/09/22 07:39 79 11/09/22 07:00 61 166/99 (121) 90 Room Air 11/09/22 06:00 70 155/93 (113) 97 Room Air 11/09/22 05:00 64 22 144/93 (110) 90 Room Air 11/09/22 04:00 65 158/86 (110) 88 Room Air 11/09/22 04:00 36.2 11/09/22 03:41 93 Room Air 11/09/22 03:05 100 Room Air 11/09/22 03:00 20 20 156/109 (125) 95 Room Air 11/09/22 02:53 59 193/103 11/09/22 02:00 63 28 193/103 (133) 91 Room Air 11/09/22 01:02 62 11/09/22 01:00 59 23 172/115 (134) 92 Room Air 11/09/22 00:18 96 21 11/09/22 00:00 35.8 11/09/22 00:00 61 15 176/101 (126) 96 Room Air 11/08/22 23:30 96 Room Air 11/08/22 23:30 68 15 162/109 (126) 96 Room Air 11/08/22 23:24 67 11/08/22 23:15 165/97 (119) 11/08/22 22:16 66 20 186/98 96 Room Air 11/08/22 19:28 35.6 97 18 257/123 (167) 94 Room Air I & O 11/09/22 07:00 Intake Total 400 ml Output Total 1700 ml Balance -1300 ml Height & Weight Height: 5'2.00" Weight: 313lbs. oz. 141.116066jd; 54.64 BMI Method:Stated General Appearance: Other Capillary Refill: Less Than 3 Seconds Gastrointestinal: normal bowel sounds, non tender, soft; No distended, No guarding, No rebound Results Lab Laboratory Tests 11/08/22 19:42 11/09/22 04:27 Assessment/Plan Assessment/Plan 1 RICHARD SOTELO MD Nov 09, 2022 10:35
--- NOTE | 2022-11-09 10:40 | ST Dysphagia Evaluation ---
Speech Evaluation-General Medical Diagnosis Stroke Like Symptoms Onset Date: Nov 08, 2022 Therapy Diagnosis Therapy Diagnosis: Intact Oropharyngeal Swallow Function Precautions Precautions: Fall, Pressure Ulcer, Aspiration Precautions/Isolations: Aspiration, Fall Prevention, Standard Precautions, Pressure Ulcer Referral Referring Physician: Dr. Tapia Reason for Referral: Evaluation/Treatment Medical History Pertinent Medical History: DM, HTN Reviewed History: Yes Speech PLF/Current-Dysphagia Prior Level of Function The patient denied prior challenges or difficulties with her oropharyngeal swallowing function. Per patient, she consumes a regular consistency diet with thin liquids. Subjective The patient was seated upright in bed, awake and alert, upon entrance to her room by the clinician. The patient greeted the clinician appropriately and was agreeable to participation in the clinical bedside swallowing evaluation. The patient reports mild hesitation to the onset of the pharyngeal swallow and a globus sensation with solid consistencies which she localizes to the laryngeal region. Cognitive Status Patient Orientation: Person, Place, Time, Situation Oral Motor Skills Dentition: Natural Current Food Consistancy: Regular, Thin Liquids Ability to Follow Directions: Excellent Oral Expression Ability: No Impairment Voice Voice Phonatory-Based Quality: Normal Voice Pitch: Normal Voice Loudness: Normal Face Facial Symmetry: Symmetrical Oral-Facial Assessment Oral-Facial Dentition: Normal Labial Seal Description: Normal Smile: Normal Lingual Protrusion: Normal Lingual ROM: Normal Lingual Strength: Normal Volitional Dry Swallow: Yes Dysphagia Evaluation Consistencies Presented: Regular, Thin Liquid, Pureed The patient does not display oral impairments to the swallow function. The patient reports a slight delay to the pharyngeal onset. Pharyngeal impairments were not appreciated by the clinician throughout the study. The patient does not display s/s of suspected aspiration with thin liquids, puree or solid consistencies throughout the bedside swallow evaluation. Dietary Recommendations: Regular Liquid Recommendations: Thin Recommendations: - Regular consistency diet with thin liquids, as tolerated. - Fully upright and alert for P.O. intake. - Avoid problematic consistencies (dry solids). - Provide additional sauces and gravies to solid consistencies to aid in sharita neil. - Small, single bites and sips. - Alternate bites and sips on a 1:1 ratio. - Place medication in puree for administration, as necessary. - Monitor for s/s of suspected aspiration with P.O. intake. If demonstrated, please contact speech pathology. The results and recommendations were provided to the patient and the patient's RN immediately following completion. Speech Short Term Goals Short Term Goals Short Term Goals 1. The patient will display safe swallowing precautions with 90% accuracy, independently. Time Frame-STG: Three Days. Speech Radio Equipment Repairer Goals Custodial Goals 1. The patient will tolerate the least restrictive diet consistency without s/s of suspected aspiration. Time Frame: Five Days. Speech-Plan Treatment Plan Speech Therapy Treatment Plan: Continue Plan of Care Treatment Duration: Nov 13, 2022 Frequency: 2 times per week Estimated Hrs Per Day: .25 hour per day Rehab Potential: Good Pt/Family Agrees to Plan: Yes Safety Risks/Education Teaching Recipient: Patient Teaching Methods: Discussion Response to Teaching: Verbalize Understanding Education Topics Provided: Results, Recommendations, Plan of Care, Safe Swallowing Precautions Time Speech Therapy Time In: 10:00 Speech Therapy Time Out: 10:20 DATE: Nov 09, 2022 Total Billed Time: 20 Billed Treatment Time 1, SAMANTA DANIELSON [facility] Nov 09, 2022 10:40
--- NOTE | 2022-11-09 10:55 | History & Physical ---
HPI History of Present Illness: 37-year-old female who presented to the ED on 11/08 with chief complaint of left- sided numbness. She reports that at 1 AM yesterday, she woke up and had numbness in her left leg, later that day it had spread upwards to her left hip. She went to urgent care and was told she had sciatica. The numbness then spread up to her left arm, leading to her presentation to the ED. On admit she was found to have a systolic BP in the 250s. She reports that she is supposed to be taking metformin, rosuvastatin, and lisinopril, but has not taken these since May due to financial issues. She was given two 20mg IV doses of labetalol, which brought her BP to the 170s, without improvement of symptoms. CT was normal, and at time of presentation the patient was outside of the therapeutic window. neurology was contacted who recommended keeping BP in the 170s and following with an MRI, which is scheduled for later today. Patient is sleeping while entering the room, easily aroused. Patient reports that she is feeling well overall, but is still having numbness on the left side. She reports that sensation to touch is intact, but altered. She reports that she cannot feel hot or cold on her left side. Patient was snoring loudly when entering the room, no episodes of apnea noted, reports that she has never been tested for sleep apnea. Patient states that she been having some dysphagia, states there is some pain when swallowing, no sensation of sticking or difficulty initiating swallowing. BP has been maintained on a nicardipine drip around 170s. Nursing reports that her BP has been variable and required changes in the titration of the nicardipine. Patient has no new complaints. Source: patient Exam Limitations: no limitations Date seen by provider: Nov 09, 2022 Time Seen by Provider: 09:30 Attending Physician Shelly Conde MD PCP Admitting Physician: Yanni Yao DO Attending Physician: Tatum Tapia MD Consult Date of Admission Nov 08, 2022 at 23:10 Home Medications Home Medications Reviewed patient Home Medication Reconciliation performed by pharmacy medication reconciliations budget technician and/or nursing. Patients Allergies have been reviewed. 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: [employer] Review of Systems ([facility]) Constitutional: No chills, No fever EENTM: No hearing loss, No blurred vision Respiratory: No cough; dyspnea on exertion (Pt states chronic issue, unchanged from baseline); No short of breath Gastrointestinal: No diarrhea, No nausea, No vomiting Genitourinary: No dysuria, No incontinence Musculoskeletal: No back pain, No neck pain Skin: No change in color, No change in hair/nails Psychiatric/Neurological: Headache (Mild headache this morning, states improved from yesterday), Paresthesia (Left leg and arm, left side of torso), Other (Reports not being able to feel temperature on left leg, left arm, left side of torso) Reviewed Test Results Reviewed Test Results Lab Laboratory Tests 11/08/22 19:39: Glucometer 319H 11/08/22 19:42: White Blood Count 11.9H, Red Blood Count 5.40H, Hemoglobin 15.3, Hematocrit 46, Mean Corpuscular Volume 84, Mean Corpuscular Hemoglobin 28, Mean Corpuscular Hemoglobin Concent 34, Red Cell Distribution Width 12.9, Platelet Count 244, Mean Platelet Volume 9.8, Immature Granulocyte % (Auto) 0, Neutrophils (%) (Auto) 71, Lymphocytes (%) (Auto) 23, Monocytes (%) (Auto) 5, Eosinophils (%) (Auto) 0, Basophils (%) (Auto) 0, Neutrophils # (Auto) 8.4H, Lymphocytes # (Auto) 2.7, Monocytes # (Auto) 0.6, Eosinophils # (Auto) 0.0, Basophils # (Auto) 0.1, Immature Granulocyte # (Auto) 0.1, Prothrombin Time 12.0L, INR Comment 0.8, Activated Partial Thromboplast Time 28, Sodium Level 132L, Potassium Level 4.2, Chloride Level 96L, Carbon Dioxide Level 24, Anion Gap 12, Blood Urea Nitrogen 9, Creatinine 0.68, Estimat Glomerular Filtration Rate 114, BUN/Creatinine Ratio 13, Glucose Level 362H, Calcium Level 10.0, Corrected Calcium 9.8, Total Bilirubin 0.2, Aspartate Amino Transf (AST/SGOT) 19, Alanine Aminotransferase (ALT/SGPT) 34, Alkaline Phosphatase 103, Troponin I < 0.30, Total Protein 7.4, Albumin 4.2, Serum Test, Qualitative NEGATIVE 11/08/22 19:53: Urine Color YELLOW, Urine Clarity CLEAR, Urine pH 7.0, Urine Specific [place] 1.010L, Urine Protein NEGATIVE, Urine Glucose (UA) 3+H, Urine Ketones NEGATIVE, Urine Nitrite NEGATIVE, Urine Bilirubin NEGATIVE, Urine Urobilinogen 0.2, Urine Leukocyte Esterase NEGATIVE, Urine RBC (Auto) NEGATIVE, Urine RBC RARE, Urine WBC RARE, Urine Squamous Epithelial Cells 0-2, Urine Crystals NONE, Urine Bacteria FEWH, Urine Casts NONE, Urine Mucus NEGATIVE, Urine Culture Indicated NO 11/09/22 04:27: White Blood Count 10.8, Red Blood Count 5.38H, Hemoglobin 15.4, Hematocrit 46, Mean Corpuscular Volume 85, Mean Corpuscular Hemoglobin 29, Mean Corpuscular Hemoglobin Concent 34, Red Cell Distribution Width 13.1, Platelet Count 237, Mean Platelet Volume 10.1, Immature Granulocyte % (Auto) 0, Neutrophils (%) (Auto) 52, Lymphocytes (%) (Auto) 40, Monocytes (%) (Auto) 6, Eosinophils (%) (Auto) 1, Basophils (%) (Auto) 0, Neutrophils # (Auto) 5.6, Lymphocytes # (Auto) 4.3H, Monocytes # (Auto) 0.6, Eosinophils # (Auto) 0.1, Basophils # (Auto) 0.0, Immature Granulocyte # (Auto) 0.0, Sodium Level 136, Potassium Level 4.1, Chloride Level 103, Carbon Dioxide Level 23, Anion Gap 10, Blood Urea Nitrogen 8, Creatinine 0.69, Estimat Glomerular Filtration Rate 113, BUN/Creatinine Ratio 12, Glucose Level 211H, Calcium Level 9.3, Corrected Calcium 9.3, Total Bilirubin 0.2, Aspartate Amino Transf (AST/SGOT) 16, Alanine Aminotransferase (ALT/SGPT) 30, Alkaline Phosphatase 72, Total Protein 7.1, Albumin 4.0, Phosphorus Level 3.3, Magnesium Level 2.0, Triglycerides Level 187H, Cholesterol Level 189, LDL Cholesterol Direct 145H, VLDL Cholesterol 37, HDL Cholesterol 39L Physical Exam-([facility]) Physical Exam Vital Signs VS - Last 72 Hours, by Label 11/08/22 11/08/22 11/08/22 11/08/22 19:28 22:16 23:15 23:24 Temp 35.6 Pulse 97 66 67 Resp 18 20 B/P (MAP) 257/123 (167) 186/98 165/97 (119) Pulse Ox 94 96 O2 Delivery Room Air Room Air 11/08/22 11/08/22 11/09/22 11/09/22 23:30 23:30 00:00 00:00 Temp 35.8 Pulse 68 61 Resp 15 15 B/P (MAP) 162/109 (126) 176/101 (126) Pulse Ox 96 96 96 O2 Delivery Room Air Room Air Room Air 11/09/22 11/09/22 11/09/22 11/09/22 00:18 01:00 01:02 02:00 Pulse 59 62 63 Resp 23 28 B/P (MAP) 172/115 (134) 193/103 (133) Pulse Ox 96 92 91 O2 Delivery Room Air Room Air FiO2 21 11/09/22 11/09/22 11/09/22 11/09/22 02:53 03:00 03:05 03:41 Pulse 59 20 Resp 20 B/P (MAP) 193/103 156/109 (125) Pulse Ox 95 100 93 O2 Delivery Room Air Room Air Room Air 11/09/22 11/09/22 11/09/22 11/09/22 04:00 04:00 05:00 06:00 Temp 36.2 Pulse 65 64 70 Resp 22 B/P (MAP) 158/86 (110) 144/93 (110) 155/93 (113) Pulse Ox 88 90 97 O2 Delivery Room Air Room Air Room Air 11/09/22 11/09/22 11/09/22 11/09/22 07:00 07:39 08:00 08:00 Pulse 61 79 64 B/P (MAP) 166/99 (121) 172/113 (132) Pulse Ox 90 98 98 O2 Delivery Room Air Room Air Room Air 11/09/22 11/09/22 11/09/22 08:00 09:00 10:00 Temp 35.6 Pulse 65 77 Resp 22 B/P (MAP) 174/101 (125) 187/115 (139) Pulse Ox 98 97 O2 Delivery Room Air Room Air Capillary Refill : Less Than 3 Seconds General Appearance: WD/WN, no apparent distress, obese HEENT: PERRL/EOMI, pharynx normal (mild erythema) Neck: non-tender, supple Respiratory: chest non-tender, lungs clear, normal breath sounds Cardiovascular: regular rate, rhythm, no murmur Gastrointestinal: non tender, soft Back: no vertebral tenderness Extremities: non-tender, no pedal edema, other (Altered sensation left arm/leg) 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: alert, oriented x 3, sensory deficit (Loss of temperature sensation, left side) Skin: normal color, warm/dry Lymphatic: no adenopathy (cervical) Assessment/Plan Assessment/Plan Admission Dx Hypertensive urgency Admission Status: Observation Assessment & Plan Hypertensive urgency - Currently maintained on nicardipine drip, target BP 170s systolic per [facility] neuro recommendation, will restart oral home dose lisinopril CVA - CT showed no sign of infarct, MRI today Non-insulin dependent T2DM: Currently on SSI HLD: resume home dose rosuvastatin Dysphagia: Speech therapist evaluation today for swallowing eval Jointer Machine Operator consult ordered Clinical Quality Measures Stroke: Date of last known well: Nov 08, 2022 Time of last known well: 01:00 SAMARA GONZALES Nov 09, 2022 10:55
--- NOTE | 2022-11-09 14:22 | Physical Therapy Evaluation ---
PT Evaluation-General Medical Diagnosis Admission Date Nov 08, 2022 at 23:10 Medical Diagnosis: Stroke Like Symptoms Onset Date: Nov 08, 2022 Therapy Diagnosis Therapy Diagnosis: Gait deficit, Strength deficit Height/Weight Height (Feet): 5 Height (Inches): 2.00 Weight (Pounds): 313 Precautions Precautions/Isolations: Aspiration, Fall Prevention, Standard Precautions, Pressure Ulcer Weight Bear Status Right Lower Extremity: Right Full Weight Bearing Left Lower Extremity: Left Full Weight Bearing Referral Physician: Dr. Yao Reason for Referral: Evaluation/Treatment Medical History Pertinent Medical History: DM, HTN Reviewed History: Yes Social History Home: Single Level Current Living Status: Entry Into Home: Stairs Without Railing PT Steps Into Home: 2 Prior Prior Level of Function SCALE: Activities may be completed with or without assistive devices. 6-Rarmmnyxpn-quxksfy completes the activity by him/herself with no assistance from a helper. 5-Set-up or Clean-up Assistance-helper sets up or cleans up; patient completes activity. [place] assists only prior to or following the activity. 4-Supervision or Touching Assistance-helper provides verbal cues and/or touching/steadying and/or contact guard assistance as patient completes activity. Assistance may be provided throughout the activity or intermittently. 3-Partial/Moderate Assistance-helper does LESS THAN HALF the effort. [place] lifts, holds or supports trunk or limbs, but provides less than half the effort. 2-Substantial/Maximal Assistance-helper does MORE THAN HALF the effort. [place] lifts or holds trunk or limbs and provides more than half the effort. 5-Eikobybxq-ksohct does ALL the effort. Patient does none of the effort to complete the activity. Or, the assistance of 2 or more helpers is required for the patient to complete the activity. If activity was not attempted, code reason: 7-Patient Refused. 9-Not Applicable-not attempted and the patient did not perform the activity before the current illness, exacerbation or injury. 10-Not Attempted due to Environmental Limitations-(lack of equipment, weather restraints, etc.). 88-Not Attempted due to Medical Conditions or Safety Concerns. Bed Mobility: 6 Transfers (B,C,W/C): 6 Gait: 6 Stairs: 6 Indoor Mobility (Ambulation): Independent Stairs: Independent Prior Devices Use: None PT Evaluation-Current Subjective Patient lying supine in bed upon PT arrival, agreeable to treatment. Patient rates pain at 0/10 currently. Objective Patient Orientation: Person, Place, Time, Situation Attachments: IV ROM/Strength ROM Lower Extremities WFLs BLEs all planes Strength Lower Extremities Right LE 5/5 all planes; Left LE 4/5 all planes Sensory Vision: Functional Hearing: Functional Sensation Right Lower Extremit: Intact Sensation Left Lower Extremity: Intact Transfers Roll Left to Right (QC): 4 Sit to Lying (QC): 4 Lying to Sitting/Side of Bed(Q: 4 Sit to Stand (QC): 4 Chair/Ikb-st-Opczr Xfer(QC): 4 Gait Does the Patient Walk?: Yes Mode of Locomotion: Walk Anticipated Mode of Locomotion: Walk Walk 10 feet (QC): 4 Walk 50 ft with 2 Turns(QC): 4 Walk 150 ft (QC): 4 Distance: 200' Gait Assistive Device: None Balance Sitting Static: Normal Sitting Dynamic: Normal Standing Static: Good Standing Dynamic: Fair Assessment/Needs Patient tolerated treatment well. Performs all bed mobility and transfers with SBA. Patient ambulates 200 feet with no AD, with SBA. Patient pushes IV pole and only requires verbal cues for path back to room. Patient sitting on EOB post treatment with call light in hand, all needs met, nursing notified. Rehab Potential: Fair PT Nursing Home Goals Nursing Home Goals PT Affiliate Manager Goals Time Frame: Dec 12, 2022 Roll Left & Right (QC): 6 Sit to Lying (QC): 6 Lying-Sitting on Side/Bed(QC): 6 Sit to Stand (QC): 6 Chair/Qsq-je-Mzygw Xfer(QC): 6 Toilet Transfer (QC): 6 Does the Patient Walk: Yes Walk 10 feet (QC): 6 Walk 50ft with 2 Turns (QC): 6 Walk 150 ft (QC): 6 1 Step (curb) (QC): 4 4 Steps (QC): 4 PT Plan Problem List Problem List: Activity Tolerance, Functional Strength, Safety, Balance, Gait, Transfer, Bed Mobility, ROM Treatment/Plan Treatment Plan: Continue Plan of Care Treatment Plan: Bed Mobility, Education, Functional Activity Corrine, Functional Strength, Group Therapy, Gait, Safety, Therapeutic Exercise, Transfers Treatment Duration: Dec 12, 2022 Frequency: 6 times per week Estimated Hrs Per Day: .25 hour per day Patient and/or Family Agrees t: Yes Safety Risks/Education Patient Education: Gait Training, Transfer Techniques Teaching Recipient: Patient Teaching Methods: Demonstration, Discussion Response to Teaching: Verbalize Understanding, Return Demonstration Time Time In: 1400 Time Out: 1415 DATE: Nov 09, 2022 Total Billed Treatment Time: 15 Total Billed Treatment Visit, TAMARA MCCLAIN PT Nov 09, 2022 14:22
--- NOTE | 2022-11-09 15:03 | Occ Therapy Progress Note ---
Therapy Progress Note OT order received, screen performed, no SKILL indication for therapy, Discontinue OT ASTER VACA OT Nov 09, 2022 15:03
[2022-11-09] MEDS ORDERED: ALPRAZolam 0.5 MG TABLET PO PRN (16:30)
[2022-11-09] MEDS ORDERED: LABETALOL 5 mg/ml 4 ML SINGLE DOSE SYRINGE IV PRN (21:15)
[2022-11-09] MEDS: hydrALAZINE INJECTION 20 MG/ML VIAL IV PRN (23:20)
[2022-11-10 04:45] LABS: BASOPHILS % (AUTO) 0 % (0-10); EOSINOPHILS # (AUTO) 0.1 10^3/uL (0.0-0.3); EOSINOPHILS % (AUTO) 1 % (0-10); HEMATOCRIT 49 % (35-52); HEMOGLOBIN 15.9 g/dL (11.5-16.0); LYMPHOCYTES # (AUTO) 2.9 10^3/uL (1.0-4.0); LYMPHOCYTES % (AUTO) 26 % (12-44); MEAN CORPUSCULAR HEMOGLOBIN 28 pg (25-34); MEAN CORPUSCULAR HGB CONC 33 g/dL (32-36); MEAN CORPUSCULAR VOLUME 87 fL (80-99); MEAN PLATELET VOLUME 10.2 fL (9.0-12.2); MONOCYTES # (AUTO) 0.7 10^3/uL (0.0-1.0); MONOCYTES % (AUTO) 6 % (0-12); NEUTROPHILS # (AUTO) 7.5 10^3/uL (1.8-7.8); NEUTROPHILS % (AUTO) 67 % (42-75); PLATELET COUNT 234 10^3/uL (130-400); WHITE BLOOD COUNT 11.3 10^3/uL (4.3-11.0)
[2022-11-10 04:56] LABS: ALBUMIN 4.2 GM/DL (3.2-4.5)
[2022-11-10 04:57] LABS: POTASSIUM 4.4 MMOL/L (3.6-5.0)
[2022-11-10 04:58] LABS: CALCIUM 9.5 MG/DL (8.5-10.1)
[2022-11-10 04:59] LABS: TOTAL PROTEIN 7.5 GM/DL (6.4-8.2)
[2022-11-10 05:01] LABS: BILIRUBIN,TOTAL 0.4 MG/DL (0.1-1.0)
[2022-11-10 05:02] LABS: PHOSPHORUS 3.1 MG/DL (2.3-4.7)
[2022-11-10 05:03] LABS: CREATININE SERUM 0.69 MG/DL (0.60-1.30)
[2022-11-10 05:05] LABS: MAGNESIUM 2.1 MG/DL (1.6-2.4)
[2022-11-10] MEDS: POTASSIUM CL 10MEQ/50ML IVPB 50 ML IV SCH (05:32)
[2022-11-10] MEDS: MAGNESIUM 1 GM/100 ML IVPB 100 ML IV SCH (05:32)
[2022-11-10] MEDS: POTASSIUM CHLORIDE 20 MEQ TABLET PO SCH (05:33)
[2022-11-10] MEDS: inSUlin ASPART 1 UNIT/0.01 ML (PER UNIT) SC SCH ×4 (05:41→21:39)
[2022-11-10] MEDS: hydrALAZINE INJECTION 20 MG/ML VIAL IV PRN ×2 (06:15→13:06)
[2022-11-10] MEDS: ONDANSETRON INJECTION 4 MG/2 ML (SDV) IV PRN (06:49)
[2022-11-10] MEDS ORDERED: PROMETHAZINE INJ 25 MG/ML VIAL IVP PRN (07:45)
[2022-11-10] MEDS ORDERED: PROMETHAZINE INJ 25 MG/ML VIAL ONE (07:57)
[2022-11-10] MEDS ORDERED: NS (IVPB) 50 ML 50 ML ONE (08:05)
--- NOTE | 2022-11-10 08:36 | Tele-ICU Progress Note ---
Subjective Date Seen by a Provider: Nov 10, 2022 Time Seen by a Provider: 08:36 Subjective/Events-last exam (Tele-ICU Physician , Progress Note ) Service provided via interactive audio and video telecommunications E-CARE system to a patient admitted to ICU bed in [facility]. Patient is seen today due to persistent need of ICU care Available chart/ vitals / labs / Images reviewed Video assessment done using teleICU camera, rest of exam as per RN Discussed with RN Sepsis Event Evaluation Height, Weight, BMI Height: 5'2.00" Weight: 313lbs. oz. 141.213103tp; 54.13 BMI Method:Stated Exam Exam Patient acknowledged, consented, and participated in this virtual visit which was conducted using real time audio/video Vital Signs Date Time Temp Pulse Resp B/P (MAP) Pulse Ox O2 Delivery O2 Flow Rate FiO2 11/10/22 08:00 35.9 11/10/22 08:00 64 10 153/84 (107) 97 Room Air 11/10/22 07:12 70 11/10/22 07:00 60 15 132/75 (94) 97 Room Air 11/10/22 06:38 71 33 165/85 (111) 97 Room Air 11/10/22 06:00 84 25 181/96 (124) 98 Room Air 11/10/22 05:00 56 37 150/93 (112) 97 Room Air 11/10/22 04:00 92 Room Air 11/10/22 04:00 55 32 148/86 (89) 96 Room Air 11/10/22 03:00 64 10 155/94 (122) 96 Room Air 11/10/22 02:00 56 13 153/78 (110) 96 Room Air 11/10/22 01:00 63 20 109/54 (90) 99 Room Air 11/10/22 01:00 63 11/10/22 00:00 74 25 163/97 (119) 94 Room Air 11/09/22 23:30 92 Room Air 11/09/22 23:00 63 20 166/117 (133) 100 Room Air 11/09/22 22:00 65 21 175/112 (130) 96 Room Air 11/09/22 21:07 62 24 174/101 (132) 96 Room Air 11/09/22 21:00 61 20 170/115 (135) 97 Room Air 11/09/22 20:12 64 13 184/109 (135) 99 Room Air 11/09/22 20:00 92 Room Air 11/09/22 19:41 35.8 11/09/22 19:00 65 11/09/22 19:00 65 182/104 (132) 94 Room Air 11/09/22 18:00 68 21 163/114 (130) 98 Room Air 11/09/22 17:00 66 48 135/89 (104) 95 Room Air 11/09/22 16:06 35.8 11/09/22 16:00 98 Room Air 11/09/22 16:00 63 19 145/92 (109) 90 Room Air 11/09/22 15:00 57 25 165/95 (118) 97 Room Air 11/09/22 14:00 63 30 141/88 (105) 88 Room Air 11/09/22 13:00 64 28 186/107 (133) 88 Room Air 11/09/22 12:43 65 11/09/22 12:00 98 Room Air 11/09/22 12:00 68 13 164/98 (120) 98 Room Air 11/09/22 11:00 63 24 97 Room Air 11/09/22 10:00 77 22 187/115 (139) 97 Room Air 11/09/22 09:00 65 174/101 (125) 98 Room Air I & O 11/10/22 07:00 Intake Total 2950 ml Output Total 3950 ml Balance -1000 ml Height & Weight Height: 5'2.00" Weight: 313lbs. oz. 141.527868co; 54.13 BMI Method:Stated General Appearance: Other Capillary Refill: Less Than 3 Seconds Gastrointestinal: non tender, soft Results Lab Laboratory Tests 11/08/22 19:42 11/09/22 04:27 11/10/22 04:26 ZABRINA BURNS MD Nov 10, 2022 08:36
--- NOTE | 2022-11-10 08:47 | Tele-ICU Progress Note ---
Subjective Date Seen by a Provider: Nov 10, 2022 Time Seen by a Provider: 08:42 Subjective/Events-last exam (Tele-ICU Physician , Progress Note ) Service provided via interactive audio and video telecommunications E-CARE system to a patient admitted to ICU bed in [facility]. Patient is seen today due to persistent need of ICU care Available chart/ vitals / labs / Images reviewed Video assessment done using teleICU camera, rest of exam as per RN Discussed with RN 37 yo F admitted on 11/09 with BP 257/123, had not been taking BP meds due to financial difficulties Latest BP 153/84, was getting Nicardipine, now off, Lisinopril, renal function ok, PRN IV hydralazine, CT head and CXR both ok This am vomiting, given phenergan, now sleepy, Zofran did not help Sepsis Event Evaluation Height, Weight, BMI Height: 5'2.00" Weight: 313lbs. oz. 141.648623ow; 54.13 BMI Method:Stated Exam Exam Patient acknowledged, consented, and participated in this virtual visit which was conducted using real time audio/video Vital Signs Date Time Temp Pulse Resp B/P (MAP) Pulse Ox O2 Delivery O2 Flow Rate FiO2 11/10/22 08:00 35.9 11/10/22 08:00 64 10 153/84 (107) 97 Room Air 11/10/22 07:12 70 11/10/22 07:00 60 15 132/75 (94) 97 Room Air 11/10/22 06:38 71 33 165/85 (111) 97 Room Air 11/10/22 06:00 84 25 181/96 (124) 98 Room Air 11/10/22 05:00 56 37 150/93 (112) 97 Room Air 11/10/22 04:00 92 Room Air 11/10/22 04:00 55 32 148/86 (89) 96 Room Air 11/10/22 03:00 64 10 155/94 (122) 96 Room Air 11/10/22 02:00 56 13 153/78 (110) 96 Room Air 11/10/22 01:00 63 20 109/54 (90) 99 Room Air 11/10/22 01:00 63 11/10/22 00:00 74 25 163/97 (119) 94 Room Air 11/09/22 23:30 92 Room Air 11/09/22 23:00 63 20 166/117 (133) 100 Room Air 11/09/22 22:00 65 21 175/112 (130) 96 Room Air 11/09/22 21:07 62 24 174/101 (132) 96 Room Air 11/09/22 21:00 61 20 170/115 (135) 97 Room Air 11/09/22 20:12 64 13 184/109 (135) 99 Room Air 11/09/22 20:00 92 Room Air 11/09/22 19:41 35.8 11/09/22 19:00 65 11/09/22 19:00 65 182/104 (132) 94 Room Air 11/09/22 18:00 68 21 163/114 (130) 98 Room Air 11/09/22 17:00 66 48 135/89 (104) 95 Room Air 11/09/22 16:06 35.8 11/09/22 16:00 98 Room Air 11/09/22 16:00 63 19 145/92 (109) 90 Room Air 11/09/22 15:00 57 25 165/95 (118) 97 Room Air 11/09/22 14:00 63 30 141/88 (105) 88 Room Air 11/09/22 13:00 64 28 186/107 (133) 88 Room Air 11/09/22 12:43 65 11/09/22 12:00 98 Room Air 11/09/22 12:00 68 13 164/98 (120) 98 Room Air 11/09/22 11:00 63 24 97 Room Air 11/09/22 10:00 77 22 187/115 (139) 97 Room Air 11/09/22 09:00 65 174/101 (125) 98 Room Air I & O 11/10/22 07:00 Intake Total 2950 ml Output Total 3950 ml Balance -1000 ml Height & Weight Height: 5'2.00" Weight: 313lbs. oz. 141.098959hn; 54.13 BMI Method:Stated General Appearance: Other Respiratory: Decreased Breath Sounds Cardiovascular: Regular Rate, Rhythm Capillary Refill: Less Than 3 Seconds Gastrointestinal: normal bowel sounds, non tender, soft Extremity: No Pedal Edema Results Lab Laboratory Tests 11/08/22 19:42 11/09/22 04:27 11/10/22 04:26 Assessment/Plan Assessment/Plan Hypertensiv crisis, resolved As OP will need to make sure pt has access to BP meds DM glu still up at 278, With obesity and Hb 15, suggests reactive polycythemia as in [place], will be evaluated by [facility], and PSG will be done RN observes snoring and apneas Critical Care: Critically Ill Patient Time spent with patient (mins): 25 ZABRINA BURNS MD Nov 10, 2022 08:47
[2022-11-10] MEDS: DOCUSATE SODIUM 100 MG CAPSULE PO SCH ×2 (10:21→21:33)
[2022-11-10] MEDS: ASPIRIN 81 MG CHEWABLE TABLET PO SCH (10:21)
[2022-11-10] MEDS: ENOXAPARIN 60 MG/0.6 ML SYRINGE SC SCH ×2 (10:21→21:32)
--- NOTE | 2022-11-10 11:42 | Progress Note ---
SAMARA GONZALES 11/10/22 1142: Subjective Date Seen by a Provider: Nov 10, 2022 Time Seen by a Provider: 09:15 Subjective/Events-last exam Patient seen asleep in chair initially, easily aroused. Had some nausea and vomiting after receiving hydralazine this morning, improved with phenergan. BP has remained mostly in the 150s since yesterday, 130s-180s. Met with OT yesterday, who signed off on her. Evaluated by PT yesterday, reported that she did well with PT. Dysphagia was evaluated by ST, did well with swallow eval. She complained of some SOB last night intermittently, nursing reports that she has been snoring loudly and noted that she did have some desaturation while sleeping . Patient reports that she feels well overall currently, is just sleepy after receiving the phenergan. Review of Systems General: No Chills, No Night Sweats HEENT: No Visual Changes, No Eye Pain Pulmonary: Dyspnea (complaints of mild SOB throughout the night); No Cough Cardiovascular: No: Chest Pain, Palpitations Gastrointestinal: Nausea (improved since this morning), Vomiting (improved) Genitourinary: No Incontinence, No Hematuria Musculoskeletal: No: neck pain, back pain Neurological: No: Weakness, Numbness Objective Exam Last Set of Vital Signs Vital Signs Date Time Temp Pulse Resp B/P (MAP) Pulse Ox O2 Delivery O2 Flow Rate FiO2 11/10/22 10:00 73 20 160/103 (122) 96 Room Air 11/10/22 08:00 35.9 11/10/22 08:00 2.00 11/09/22 00:18 21 Capillary Refill : Less Than 3 Seconds I&O Intake and Output 11/10/22 00:00 Intake Total 2650 ml Output Total 4700 ml Balance -2050 ml Intake Oral 2650 ml Output Urine Total 4700 ml # Voids 1 Daily Weight Change Yes, 2-13 lbs General: Alert, Oriented X3 HEENT: Atraumatic Neck: Supple Lungs: Clear to Auscultation, Normal Air Movement Heart: Regular Rate Abdomen: Soft, No Tenderness Extremities: No Clubbing, No Edema Skin: No Rashes, No Breakdown Neuro: Normal Speech, Other (Altered sensation on left side of body) Psych/Mental Status: Mental Status NL, Other Results Lab Laboratory Tests 11/09/22 15:33: Glucometer 207H 11/09/22 20:47: Glucometer 261H 11/10/22 04:26: White Blood Count 11.3H, Red Blood Count 5.63H, Hemoglobin 15.9, Hematocrit 49, Mean Corpuscular Volume 87, Mean Corpuscular Hemoglobin 28, Mean Corpuscular Hemoglobin Concent 33, Red Cell Distribution Width 13.2, Platelet Count 234, Mean Platelet Volume 10.2, Immature Granulocyte % (Auto) 0, Neutrophils (%) (Auto) 67, Lymphocytes (%) (Auto) 26, Monocytes (%) (Auto) 6, Eosinophils (%) ( Auto) 1, Basophils (%) (Auto) 0, Neutrophils # (Auto) 7.5, Lymphocytes # (Auto) 2.9, Monocytes # (Auto) 0.7, Eosinophils # (Auto) 0.1, Basophils # (Auto) 0.0, Immature Granulocyte # (Auto) 0.0, Sodium Level 135, Potassium Level 4.4, Chloride Level 102, Carbon Dioxide Level 23, Anion Gap 10, Blood Urea Nitrogen 9, Creatinine 0.69, Estimat Glomerular Filtration Rate 113, BUN/Creatinine Ratio 13, Glucose Level 225H, Calcium Level 9.5, Corrected Calcium 9.3, Phosphorus Level 3.1, Magnesium Level 2.1, Total Bilirubin 0.4, Aspartate Amino Transf (AST/SGOT) 22, Alanine Aminotransferase (ALT/SGPT) 36, Alkaline Phosphatase 72, Total Protein 7.5, Albumin 4.2 11/10/22 06:42: Glucometer 278H 11/10/22 10:37: Glucometer 244H Microbiology 11/08/22 MRSA Screen - Final, Complete MRSA not isolated Assessment/Plan Assessment/Plan Assess & Plan/Chief Complaint Hypertensive urgency - Bp mostly in 150s, continue to monitor, discontinue nicardipine, start on oral lisinopril, hydralazine prn CVA - CT showed no sign of infarct, MRI unobtainable due to body habitus Non-insulin dependent T2DM: Currently on SSI HLD: resume home dose rosuvastatin Dysphagia: Reports increasing dysphagia, will repeat swallow eval Probable MOISES: Nursing reports loud snoring, desats while sleeping, recommend outpatient sleep study Sock Mender consult ordered Clinical Quality Measures Stroke: Date of last known well: Nov 08, 2022 Time of last known well: 01:00 TATUM TAPIA MD 11/10/22 1828: Supervisory-Addendum Brief Verification & Attestation Participated in pt care: history, physical Personally performed: exam, history Care discussed with: Medical Student Procedures: n/a Verification and Attestation of Medical Student E/M Service A medical student performed and documented this service in my presence. I reviewed and verified all information documented by the medical student and made modifications to such information, when appropriate. I personally performed the physical exam and medical decision making. Tatum Tapia, Nov 10, 2022,18:26 Agree with above, In addition Hypertensive urgency/Emergency Questionable CVA Lacunar infarct - Permissive HTN, having troubles swallowing, NPO currently, restarted cardene until after swallow evaluation NIDDM - SSI C ? MOISES - Needs outpatient workup Dysphagia - Speech evaluation pending SAMARA GONZALES Nov 10, 2022 11:42 TATUM TAPIA MD Nov 10, 2022 18:28
--- NOTE | 2022-11-10 12:42 | Speech Therapy Daily Note ---
Speech Daily Progress Note Subjective Date Seen by Provider: Nov 10, 2022 Time Seen by Provider: 11:40 Speech pathology was contacted by the patient's RN with information regarding a possible decline in the patient's swallowing function. The RN stated the patient reported she is having an increase in difficulty with swallowing, with results of emesis following attempts. Due to this, the clinician re-evaluated the patient's swallowing function on this date. Upon arrival, the patient has an emesis weinstein present and is expectorating her own secretions. Per patient, she is unable to swallow any consistency as she feels a severe globus sensation which she localized to the upper esophageal region. A dditionally, the patient reported a new onset of left facial and lingual numbness. The patient reported the RN is not aware of the new onset therefore the clinician contacted the RN immediately for evaluation. Please refer to the RN's documentation for additional information. Objective The patient was seated upright in the recliner. The patient displays facial symmetry. Lingual protrusion remains at baseline. Lingual and labial range of motion and strength remain symmetrical and appropriate. Symmetrical eye brow raise. Dysarthria or aphasia were not appreciated, as the patient continued to communicate fluently with 100% intelligibility. The patient is unable to describe the left facial sensation change however reported it is also present on the entire left side of her body. Initially, the patient was observed to swallow her own secretions. Throughout the study, the patient stated she was unable to swallow her own secretions. The patient was provided thin liquid, mildly thick liquids, moderately thick liquids, and puree (all via teaspoon). The patient displays a forward head pumping motion while transferring the material posterior in the oral cavity. Prior to the pharyngeal swallow trigger (as laryngeal elevation was not palpated), the patient begins coughing with each consistency and expectorating the material into the basin stating, "Oh, nope." As the clinician is unable to evaluate any consistency to completion and the patient reports choking with all consistencies attempted, the clinician must place the patient N.P.O. due to elevated aspiration risks with any P.O. The recommendations were provided to the patient. Recommendations: - N.P.O. - Frequent and excellent oral care to reduce the transfer of oral bacteria to the lungs should aspiration of secretions occur. - Modified barium swallow scheduled for 11/11/22 at 11:15 with updated recommendations pending. If unable to complete the modified barium swallow, referral to GI is recommended for esophageal study. The recommendations and results were provided to the patient and the RN. Assessment Assessment Current Status: Regressing Treatment Plan Continue Plan of Care Speech Short Term Goals Short Term Goals Short Term Goals 1. The patient will display safe swallowing precautions with 90% accuracy, independently. Time Frame-STG: Three Days. Speech Detention Goals Restorative Care Technician Goals 1. The patient will tolerate the least restrictive diet consistency without s/s of suspected aspiration. Time Frame: Five Days. Speech-Plan Treatment Plan Speech Therapy Treatment Plan: Continue Plan of Care Treatment Duration: Nov 13, 2022 Frequency: 2 times per week Estimated Hrs Per Day: .25 hour per day Rehab Potential: Fair Pt/Family Agrees to Plan: Yes Safety Risks/Education Teaching Recipient: Patient Teaching Methods: Discussion Response to Teaching: Verbalize Understanding Education Topics Provided: Results, Recommendations, Plan of Care Time Speech Therapy Time In: 11:40 Speech Therapy Time Out: 12:00 DATE: Nov 10, 2022 Total Billed Time: 20 Billed Treatment Time 1, DONALD GRAJEDA Nov 10, 2022 12:42
--- NOTE | 2022-11-10 12:50 | Physical Therapy Progress Note ---
Therapy Progress Note Patient is up independently without difficulty. No continued skilled PT indicated. ANDREW CRUZ PT Nov 10, 2022 12:49
[2022-11-10] MEDS ORDERED: niCARdipine IV PYXIS DRIP KIT = 50 MG X 2 VIALS ONE (13:18)
[2022-11-10] MEDS: NS IV SCH (13:56)
[2022-11-10] MEDS: NICARDIPINE IV SCH (13:56)
[2022-11-11 04:16] LABS: BASOPHILS % (AUTO) 0 % (0-10); EOSINOPHILS % (AUTO) 0 % (0-10); HEMATOCRIT 52 % (35-52); HEMOGLOBIN 16.6 g/dL (11.5-16.0); LYMPHOCYTES # (AUTO) 1.4 10^3/uL (1.0-4.0); LYMPHOCYTES % (AUTO) 10 % (12-44); MEAN CORPUSCULAR HEMOGLOBIN 29 pg (25-34); MEAN CORPUSCULAR HGB CONC 32 g/dL (32-36); MEAN CORPUSCULAR VOLUME 89 fL (80-99); MONOCYTES % (AUTO) 7 % (0-12); NEUTROPHILS % (AUTO) 83 % (42-75); PLATELET COUNT 278 10^3/uL (130-400); WHITE BLOOD COUNT 14.5 10^3/uL (4.3-11.0)
[2022-11-11 04:27] LABS: ALBUMIN 4.3 GM/DL (3.2-4.5); POTASSIUM 4.8 MMOL/L (3.6-5.0)
[2022-11-11 04:29] LABS: CALCIUM 9.8 MG/DL (8.5-10.1)
[2022-11-11 04:30] LABS: TOTAL PROTEIN 7.7 GM/DL (6.4-8.2)
[2022-11-11 04:32] LABS: BILIRUBIN,TOTAL 0.4 MG/DL (0.1-1.0)
[2022-11-11 04:33] LABS: PHOSPHORUS 5.8 MG/DL (2.3-4.7)
[2022-11-11 04:34] LABS: CREATININE SERUM 0.98 MG/DL (0.60-1.30)
[2022-11-11 04:36] LABS: MAGNESIUM 2.4 MG/DL (1.6-2.4)
[2022-11-11 04:41] LABS: LYMPHOCYTES % (MANUAL) 11 %; MONOCYTES % (MANUAL) 5 %; NEUTROPHILS % (MANUAL) 84 %
[2022-11-11] MEDS: POTASSIUM CL 10MEQ/50ML IVPB 50 ML IV SCH (05:03)
[2022-11-11] MEDS: MAGNESIUM 1 GM/100 ML IVPB 100 ML IV SCH (05:04)
[2022-11-11] MEDS: POTASSIUM CHLORIDE 20 MEQ TABLET PO SCH (05:05)
[2022-11-11] MEDS: inSUlin ASPART 1 UNIT/0.01 ML (PER UNIT) SC SCH ×4 (06:05→20:58)
--- NOTE | 2022-11-11 07:35 | Tele-ICU Progress Note ---
Subjective Date Seen by a Provider: Nov 11, 2022 Time Seen by a Provider: 07:33 Subjective/Events-last exam (Tele-ICU Physician , Progress Note ) Service provided via interactive audio and video telecommunications E-CARE system to a patient admitted to ICU bed in [facility]. Patient is seen today due to persistent need of ICU care Available chart/ vitals / labs / Images reviewed Video assessment done using teleICU camera, rest of exam as per RN Discussed with RN BP better controlled today 131/85 on po lisinopril 40 mg/d, off IV Cardene, has not needed PRN IV hydralazine or labetolol Renal function preserved Cr0.98, BUN 20 Hb 16 which I suspect is from reactive polycythemia from severe MOISES, Sepsis Event Evaluation Height, Weight, BMI Height: 5'2.00" Weight: 313lbs. oz. 141.208159de; 22.57 BMI Method:Stated Exam Exam Patient acknowledged, consented, and participated in this virtual visit which was conducted using real time audio/video Vital Signs Date Time Temp Pulse Resp B/P (MAP) Pulse Ox O2 Delivery O2 Flow Rate FiO2 11/11/22 06:00 65 28 131/85 (100) 94 Nasal Cannula 5.00 11/11/22 05:30 66 24 136/92 (107) 99 Nasal Cannula 5.00 11/11/22 05:00 75 32 131/87 (102) 98 Nasal Cannula 5.00 11/11/22 04:30 64 28 145/99 (114) 98 Nasal Cannula 5.00 11/11/22 04:00 72 14 130/83 (99) 99 Nasal Cannula 5.00 11/11/22 04:00 97 Nasal Cannula 5.00 11/11/22 03:30 64 28 142/87 (105) 95 Nasal Cannula 5.00 11/11/22 03:00 65 32 132/90 (104) 97 Nasal Cannula 5.00 11/11/22 02:30 80 21 130/85 (100) 97 Nasal Cannula 5.00 11/11/22 02:00 67 25 134/88 (107) 96 Nasal Cannula 5.00 11/11/22 01:30 74 28 137/82 (109) 97 Nasal Cannula 5.00 11/11/22 01:00 63 11/11/22 01:00 63 30 147/82 (103) 96 Nasal Cannula 5.00 11/11/22 00:30 68 18 133/85 (101) 97 Nasal Cannula 5.00 11/11/22 00:00 69 30 145/91 (109) 97 Nasal Cannula 5.00 11/10/22 23:59 97 Nasal Cannula 5.00 11/10/22 23:30 71 20 126/78 (94) 96 Nasal Cannula 5.00 11/10/22 23:00 66 21 151/93 (112) 96 Nasal Cannula 5.00 11/10/22 22:30 85 17 140/74 (96) 96 Nasal Cannula 5.00 11/10/22 22:00 80 14 148/89 (110) 99 Nasal Cannula 5.00 11/10/22 21:30 68 35 155/83 (112) 96 Nasal Cannula 5.00 11/10/22 21:26 95 Nasal Cannula 5.00 11/10/22 21:00 68 29 112/77 (85) 96 Nasal Cannula 5.00 11/10/22 20:30 71 36 158/89 (112) 96 Nasal Cannula 5.00 11/10/22 20:00 36.3 Nasal Cannula 5.00 11/10/22 20:00 70 21 155/85 (108) 90 Nasal Cannula 5.00 11/10/22 20:00 97 Nasal Cannula 5.00 11/10/22 19:30 70 34 153/90 (111) 94 Nasal Cannula 5.00 11/10/22 19:00 70 30 125/72 (89) 96 Nasal Cannula 5.00 11/10/22 19:00 70 11/10/22 18:02 37.7 11/10/22 18:00 75 12 143/74 (97) 94 Room Air 11/10/22 17:00 71 45 170/88 (115) 94 Room Air 11/10/22 16:09 97 Nasal Cannula 4.00 11/10/22 16:00 73 23 148/81 (103) 98 Room Air 11/10/22 15:00 70 30 149/87 (107) 96 Room Air 11/10/22 14:00 74 22 157/96 (116) 98 Room Air 11/10/22 13:56 76 144/80 11/10/22 13:00 69 36 144/80 (101) 94 Room Air 11/10/22 12:06 89 11/10/22 12:00 94 Nasal Cannula 2.00 11/10/22 12:00 35.8 11/10/22 12:00 89 20 201/116 (144) 90 Room Air 11/10/22 11:00 66 35 184/107 (132) 96 Room Air 11/10/22 10:00 73 20 160/103 (122) 96 Room Air 11/10/22 09:00 58 30 159/87 (111) 94 Room Air 11/10/22 08:00 35.9 11/10/22 08:00 64 10 153/84 (107) 97 Room Air 11/10/22 08:00 94 Nasal Cannula 2.00 I & O 11/11/22 07:00 Intake Total 300 ml Output Total 1800 ml Balance -1500 ml Height & Weight Height: 5'2.00" Weight: 313lbs. oz. 141.413594nv; 22.57 BMI Method:Stated General Appearance: No Apparent Distress, WD/WN, Other Respiratory: Lungs Clear, Decreased Breath Sounds Cardiovascular: Regular Rate, Rhythm Capillary Refill: Less Than 3 Seconds Gastrointestinal: normal bowel sounds, non tender, soft Extremity: No Pedal Edema Results Lab Laboratory Tests 11/10/22 04:26 11/11/22 03:48 Assessment/Plan Assessment/Plan HTN crisis-resolved, will go home on lisinopril Suspected severe MOISES, to be tested as OP Can go to general medical floor, having some swallow issues to get barium mumtazo Critical Care: Critically Ill Patient ZABRINA BURNS MD Nov 11, 2022 07:35
[2022-11-11] MEDS: ASPIRIN 81 MG CHEWABLE TABLET PO SCH (08:18)
[2022-11-11] MEDS: ENOXAPARIN 60 MG/0.6 ML SYRINGE SC SCH (08:18)
[2022-11-11] MEDS: DOCUSATE SODIUM 100 MG CAPSULE PO SCH ×2 (09:00→20:58)
--- NOTE | 2022-11-11 13:09 | Progress Note ---
SAMARA GONZALES 11/11/22 1309: Subjective Date Seen by a Provider: Nov 11, 2022 Time Seen by a Provider: 10:00 Subjective/Events-last exam Patient seen sitting up in chair. Reports she is still feeling sleepy today. Now having altered sensation in the left side of her neck and face as well, says it started yesterday. Seen by ST for swallow eval, unable to swallow, getting barium swallow today. Reports she has a sensation of liquids getting stuck in her esophagus, points to just above her sternum. Nausea has resolved. Did well with PT yesterday, discharged from their service. Patient has no new complaints. Review of Systems General: No Chills, No Night Sweats; Fatigue HEENT: No Head Aches, No Visual Changes, No Eye Pain Pulmonary: No Dyspnea, No Cough Cardiovascular: No: Chest Pain, Palpitations Gastrointestinal: No: Nausea, Vomiting Genitourinary: No Dysuria, No Hematuria Musculoskeletal: No: neck pain, back pain Neurological: Other (altered sensation left side); No: Weakness Objective Exam Last Set of Vital Signs Vital Signs Date Time Temp Pulse Resp B/P (MAP) Pulse Ox O2 Delivery O2 Flow Rate FiO2 11/11/22 10:00 58 14 126/80 (95) 96 Nasal Cannula 2.00 11/10/22 20:00 36.3 11/09/22 00:18 21 Capillary Refill : Less Than 3 Seconds I&O Intake and Output 11/10/22 23:59 Intake Total 1000 ml Output Total 2250 ml Balance -1250 ml Intake Oral 1000 ml Output Urine Total 2200 ml Emesis 50 ml General: Alert, Oriented X3 HEENT: Atraumatic Neck: Supple Lungs: Clear to Auscultation, Normal Air Movement Heart: Regular Rate Abdomen: Normal Bowel Sounds, Soft Extremities: No Clubbing, No Cyanosis Skin: No Rashes, No Breakdown Neuro: Normal Speech, Other (Altered sensation left side of body) Results Lab Laboratory Tests 11/10/22 16:19: Glucometer 251H 11/10/22 21:36: Glucometer 205H 11/11/22 03:48: White Blood Count 14.5H, Red Blood Count 5.82H, Hemoglobin 16.6H, Hematocrit 52, Mean Corpuscular Volume 89, Mean Corpuscular Hemoglobin 29, Mean Corpuscular Hemoglobin Concent 32, Red Cell Distribution Width 13.8, Platelet Count 278, Mean Platelet Volume 10.0, Immature Granulocyte % (Auto) 1, Neutrophils (%) (Auto) 83H, Lymphocytes (%) (Auto) 10L, Monocytes (%) (Auto) 7, Eosinophils (%) (Auto) 0, Basophils (%) (Auto) 0, Neutrophils # (Auto) 12.0H, Lymphocytes # (Auto) 1.4, Monocytes # (Auto) 1.0, Eosinophils # (Auto) 0.0, Basophils # (Auto) 0.0, Immature Granulocyte # (Auto) 0.1, Neutrophils % (Manual) 84, Lymphocytes % (Manual) 11, Monocytes % (Manual) 5, Sodium Level 138, Potassium Level 4.8, Chloride Level 99, Carbon Dioxide Level 26, Anion Gap 13, Blood Urea Nitrogen 20H, Creatinine 0.98, Estimat Glomerular Filtration Rate 75, BUN/Creatinine Ratio 20, Glucose Level 179H, Calcium Level 9.8, Corrected Calcium 9.6, Phosphorus Level 5.8H, Magnesium Level 2.4, Total Bilirubin 0.4, Aspartate Amino Transf (AST/SGOT) 13, Alanine Aminotransferase (ALT/SGPT) 30, Alkaline Phosphatase 87, Total Protein 7.7, Albumin 4.3 11/11/22 12:28: Glucometer 174H Microbiology 11/08/22 MRSA Screen - Final, Complete MRSA not isolated Assessment/Plan Assessment/Plan Assess & Plan/Chief Complaint Hypertensive urgency/emergency - Bp has stayed around 130s since starting on oral lisinopril, continue to monitor, permissive HTN Questionable CVA/lacunar infarct - CT showed no sign of infarct, MRI u nobtainable due to body habitus Non-insulin dependent T2DM: Currently on SSI HLD: resume home dose rosuvastatin Dysphagia: Barium swallow yesterday, seen by for swallow eval, unable to tolerate any consistency Probable MOISES: Nursing reports loud snoring, desats while sleeping, recommend outpatient sleep study Manager Of Environmental Services consult ordered Clinical Quality Measures Stroke: Date of last known well: Nov 08, 2022 Time of last known well: 01:00 TATUM TAPIA MD 11/11/22 1702: Supervisory-Addendum Brief Verification & Attestation Participated in pt care: history, physical Personally performed: exam, history Care discussed with: Medical Student Procedures: n/a Verification and Attestation of Medical Student E/M Service A medical student performed and documented this service in my presence. I revie wed and verified all information documented by the medical student and made modifications to such information, when appropriate. I personally performed the physical exam and medical decision making. Tatum Tapia, Nov 11, 2022,17:00 Agree with above, In addition Hypertensive urgency/Emergency Questionable CVA Lacunar infarct - Permissive HTN, having troubles swallowing, NPO currently, restarted cardene until after swallow evaluation 11/11: Better controlled, off PRNs, will transfer to med/surg floor NIDDM - SSI C ? MOISES - Needs outpatient workup Dysphagia - Speech evaluation pending 11/11: Barium swallow today does show some disorganization, Start CLD SAMARA GONZALES Nov 11, 2022 13:09 TATUM TAPIA MD Nov 11, 2022 17:02
--- NOTE | 2022-11-11 13:35 | ST Mod Barium Swallow ---
Speech Evaluation-General Medical Diagnosis Stroke Like Symptoms Onset Date: Nov 08, 2022 Therapy Diagnosis Therapy Diagnosis: Severe Pharyngeal Esophageal Dysphagia Precautions Precautions: Fall, Aspiration Precautions/Isolations: Aspiration, Fall Prevention Referral Referring Physician: Dr. Tapia Reason for Referral: Evaluation/Treatment Medical History Pertinent Medical History: DM, HTN Reviewed History: Yes Speech Mod Barium Swallow Prior Level of Function Please refer to the medical chart for the patient's prior level of P.O. intake information and details. Oral Motor Skills Dentition Natural Dentures: Full Lingual Protrusion: Normal Lingual ROM: Normal Lingual Strength: Normal Volitional Dry Swallow: Yes Voluntary Cough: Yes Can Clear Throat Volitionally: Yes Textures-Lateral View Lateral View Food Presentation: Thin Liquid via Spoon, Thin Liquid via Straw, Pureed Solids Oral Phase Labial Closure: No Impairment (WFL) Bolus Formation Pooling L/R: No Impairment (WFL) Bolus Formation Placement: No Impairment (WFL) A/P Lingual Propulsion: No Impairment (WFL) Lingual Movement: No Impairment (WFL) The patient does not display an oral impairment to the swallowing function. Pharyngeal Phase Swallow Response: No Impairment (WFL) Base of Tongue: No Impairment (WFL) Epiglottic Movement: No Impairment (WFL) Laryngeal Elevation: No Impairment (WFL) Vallecular Residue: No Impairment (WFL) Pharyngeal Wall Residue: No Impairment (WFL) Piriform Sinus Residue: Moderate Laryngeal Penetration: None Aspiration Observations: None The patient demonstrated a timely onset of the pharyngeal swallow function. Hyo- laryngeal excursion and laryngeal elevation were present which resulted in complete inversion of the epiglottic structure. No aspiration or laryngeal penetration occurred. Intact base of tongue retraction and pharyngeal wall contraction were appreciated. Unfortunately, due to the patient's body habitus, clear viewing of the cricopharyngeal region could not be visualized with the exception of during periods of laryngeal elevation (mid-swallow). During these periods of visibility, the cricopharyngeal region appeared to display appropriate retraction with clearance of bolus material (thin liquid). Following the initial swallow, moderate residual material would remain in the pyriform sinuses (thin liquid). Prior to completing a second swallow to clear, the patient would expectorate the material to the oral cavity and attempt to re- swallow. At this time, the material would not clear the cricopharyngeal region and the patient expectorated the material. With increased viscosity (puree), the bolus material remained in the pyriform sinuses and would not clear the cricopharyngeal area. The puree was expectorated into a basin. At this time, the study was terminated with a referral to gastroenterology. Regardless of the pyriform residue visualized, no aspiration or laryngeal penetration occurred with any consistency tested. Summary/Impressions The patient demonstrated severe pharyngo-esophageal dysphagia characterized by decreased relaxation or obstruction of bolus flow at the cricopharyngeal/upper esophageal region. No aspiration or laryngeal penetration was visualized. Pending an evaluation by gastroenterology, the clinician recommends the following: - Clear liquid diet consistency, as tolerated. - Fully upright and alert for P.O. intake. - Sips no larger than one teaspoon. - Swallow twice with every sip to minimize pharyngeal residue. - Crush medication and place in puree for administration. - Monitor for s/s of suspected aspiration with P.O. intake. If demonstrated, the patient needs to be placed N.P.O. with consideration for non-oral nutrition and hydration supplement. - Per radiologist, a referral for an esophagram versus an EGD is the most appropriate subsequent procedure for the patient. - P.O. recommendations deferred to gastroenterology once referral occurs. The results and recommendations were discussed with the patient and the patient's RN immediately following completion of the study. The patient remains at a high aspiration risks due to the moderate pyriform sinus residue. Speech Short Term Goals Short Term Goals Short Term Goals 1. The patient will display safe swallowing precautions with 90% accuracy, independently. Time Frame-STG: Three Days. Speech Nursing Home Goals Nursing Home Goals 1. The patient will tolerate the least restrictive diet consistency without s/s of suspected aspiration. Time Frame: Five Days. Speech-Plan Treatment Plan Speech Therapy Treatment Plan: Continue Plan of Care Treatment Duration: Nov 13, 2022 Frequency: 2 times per week Estimated Hrs Per Day: .25 hour per day Rehab Potential: Fair Pt/Family Agrees to Plan: Yes Safety Risks/Education Teaching Recipient: Patient Teaching Methods: Discussion Response to Teaching: Verbalize Understanding Education Topics Provided: Results, Recommendations, Safe Swallowing Precautions Time Speech Therapy Time In: 11:15 Speech Therapy Time Out: 11:45 DATE: Nov 11, 2022 Total Billed Time: 30 Billed Treatment Time 1, MOD, DYST DONALD CARO Nov 11, 2022 13:35
[2022-11-11 14:35] VITALS: BP 136/77
[2022-11-11] MEDS: ONDANSETRON INJECTION 4 MG/2 ML (SDV) IV PRN (14:55)
--- NOTE | 2022-11-11 15:25 | Diagnostic Imaging Report ---
INDICATION: Globus sensation and dysphagia. TECHNIQUE: The study was performed in conjunction with Speech Pathology. Video fluoroscopy was performed during the swallowing of barium at multiple consistencies. Total of 45 seconds of fluoroscopic time was utilized. Reference air kerma is 114 mGy. FINDINGS: Patient ingested thin barium as well as applesauce consistency. Oral phase is unremarkable. There is some piriform sinus residue with all consistencies, but no laryngeal penetration or aspiration was observed. There does appear to be some questionable narrowing at the upper esophagus, indeterminate. IMPRESSION: No definite penetration or aspiration was observed; however, there is some questionable narrowing or obstruction at the level of the upper esophagus. Esophagram or endoscopy would be recommended for further evaluation. Dictated by: Dictated on workstation # [id number]
[2022-11-11 16:31] VITALS: BP 125/81
[2022-11-11 19:54] VITALS: BP 145/85
[2022-11-11] MEDS ORDERED: ENOXAPARIN 40 MG/0.4 ML SYRINGE SC SCH (21:00)
[2022-11-11 23:28] VITALS: BP 145/83
[2022-11-12] VITALS (8 sets, daily range): BP systolic 136–153; BP diastolic 77–93
[2022-11-12 04:40] LABS: BASOPHILS % (AUTO) 0 % (0-10); EOSINOPHILS % (AUTO) 0 % (0-10); HEMATOCRIT 48 % (35-52); HEMOGLOBIN 15.6 g/dL (11.5-16.0); LYMPHOCYTES # (AUTO) 2.4 10^3/uL (1.0-4.0); LYMPHOCYTES % (AUTO) 20 % (12-44); MEAN CORPUSCULAR HEMOGLOBIN 29 pg (25-34); MEAN CORPUSCULAR HGB CONC 32 g/dL (32-36); MEAN CORPUSCULAR VOLUME 88 fL (80-99); MEAN PLATELET VOLUME 10.3 fL (9.0-12.2); MONOCYTES # (AUTO) 0.8 10^3/uL (0.0-1.0); MONOCYTES % (AUTO) 7 % (0-12); NEUTROPHILS # (AUTO) 8.9 10^3/uL (1.8-7.8); NEUTROPHILS % (AUTO) 73 % (42-75); PLATELET COUNT 271 10^3/uL (130-400); WHITE BLOOD COUNT 12.2 10^3/uL (4.3-11.0)
[2022-11-12 04:58] LABS: ALBUMIN 4.2 GM/DL (3.2-4.5); BILIRUBIN,TOTAL 0.5 MG/DL (0.1-1.0); CALCIUM 9.7 MG/DL (8.5-10.1); CREATININE SERUM 0.79 MG/DL (0.60-1.30); MAGNESIUM 2.3 MG/DL (1.6-2.4); PHOSPHORUS 3.2 MG/DL (2.3-4.7); POTASSIUM 4.7 MMOL/L (3.6-5.0); TOTAL PROTEIN 7.7 GM/DL (6.4-8.2)
[2022-11-12] MEDS: MAGNESIUM 1 GM/100 ML IVPB 100 ML IV SCH (05:19)
[2022-11-12] MEDS: POTASSIUM CL 10MEQ/50ML IVPB 50 ML IV SCH (05:20)
[2022-11-12] MEDS: POTASSIUM CHLORIDE 20 MEQ TABLET PO SCH (05:20)
[2022-11-12] MEDS: inSUlin ASPART 1 UNIT/0.01 ML (PER UNIT) SC SCH ×4 (05:23→21:07)
[2022-11-12] MEDS: ASPIRIN 81 MG CHEWABLE TABLET PO SCH (09:30)
[2022-11-12] MEDS: DOCUSATE SODIUM 100 MG CAPSULE PO SCH ×2 (09:30→19:58)
[2022-11-12] MEDS: ENOXAPARIN 60 MG/0.6 ML SYRINGE SC SCH ×2 (09:31→21:07)
--- NOTE | 2022-11-12 11:11 | Consultation - Surgery ---
AFSHAN OME 11/12/22 1111: History of Present Illness History of Present Illness Patient Consulted On(ryan/time) 11/12/22 10:58 Date Seen by Provider: Nov 12, 2022 Time Seen by Provider: 10:40 Reason for Visit: Dysphagia History of Present Illness Sunday Gruber is a 37 yo female who was transferred to [facility] for stroke-like symptoms of left arm and leg numbness which began on 11/08, diagnosis of suspected TIA and hypertensive emergency. General surgery was consulted due to new-onset of dysphagia on 11/10 which has persisted. Barium swallow study was performed showing ability to consume liquids without aspiration, but puree was unable to progress beyond the piriform sinuses. The patient's stated history is consistent with these findings, with ability to drink liquids in sips, but great difficulty consuming purees and solid foods; she has not eaten since 11/10, which was an apple sauce puree. The patient denies any throat pain or pain with swallowing. She does endorse 2 episodes of vomiting on 11/10 and 1 episode of vomiting on 11/11, which she and the nurse attribute to medication administration here; patient reports nonbloody or coffee-ground emesis. The patient denies any abdominal pain, fever, chills, headache, chest pain, urinary symptoms, or diarrhea. She does endorse right posterior neck pain of 1 day. She also states she has not had a bowel movement since 11/07, though she normally stools daily. She states her numbness has remained unchanged since admission to the hospital. Allergies and Home Medications Allergies Coded Allergies: No Known Drug Allergies (Unverified , 10/16/18) Patient Home Medication List Home Medication List Reviewed: Yes Acetaminophen (Tylenol Extra Strength) 500 Mg Tablet, 1,000 MG PO Q8H PRN for PAIN-MILD (1-4), (Reported) Entered as Reported by: EDWARD HOWARD on 11/09/22 1017 Last Action: Reviewed Albuterol Sulfate (Ventolin Hfa) 1 Puff Puff, 2 PUFF INH Q4H PRN for SHORTNESS OF BREATH, (Reported) Entered as Reported by: EDWARD HOWARD on 11/09/22 1017 Last Action: Reviewed Discontinued Medications Cyclobenzaprine HCl (Cyclobenzaprine HCl) 10 Mg Tablet, 10 MG PO HS PRN for SPASMS Discontinued Reason: No Longer Taking Prescribed by: DONNIE Winkler ROVENSTINE on 08/20/20 2100 Last Action: Discontinued Hydrocodone/Acetaminophen (Hydrocodone-Acetamin 5-325 mg) 1 Each Tablet, 1 EACH PO Q4H Discontinued Reason: No Longer Taking Prescribed by: DONNIE Winkler ROVENSTINE on 02/07/20 1720 Last Action: Discontinued Meloxicam (Meloxicam) 7.5 Mg Tablet, 7.5 MG PO DAILY Discontinued Reason: No Longer Taking Prescribed by: SINDY ADAME on 10/16/18 1245 Last Action: Discontinued Past Wqbomay-Fznpxz-Swpoxo Hx Patient Social History Smoking Status: Current Everyday Smoker (26 years) Cigarettes Per Day: 20 Type Used: Cigarettes 2nd Hand Smoke Exposure: No Recent Hopitalizations: No Alcohol Use?: Yes (once per month) Seasonal Allergies Seasonal Allergies: No Surgeries History of Surgeries: No Respiratory History of Respiratory Disorde: No Cardiovascular History of Cardiac Disorders: Yes Cardiac Disorders: High Cholesterol, Hypertension Neurological History of Neurological Disord: No Genitourinary History of Genitourinary Disor: No Gastrointestinal History of Gastrointestinal Di: No Musculoskeletal History of Musculoskeletal Dis: No Endocrine History of Endocrine Disorders: Yes Endocrine Disorders: Diabetes, Non-Insulin dep HEENT History of HEENT Disorders: No Cancer History of Cancer: No Psychosocial History of Psychiatric Problem: No Integumentary History of Skin or Integumenta: No Blood Transfusions History of Blood Disorders: No Family Medical History Significant Family History: Diabetes (Father), GI Disease (Pancreatitis, mother), Hypertension (Father) Review of Systems-General Constitutional: No chills, No fever EENTM: No hoarseness, No mouth pain, No throat pain, No throat swelling Respiratory: No cough, No dyspnea on exertion, No short of breath, No wheezing Cardiovascular: No chest pain; edema Gastrointestinal: No abdominal pain, No diarrhea; dysphagia; No hematemesis; nausea, vomiting (last yesterday) Genitourinary: No dysuria, No frequency, No hematuria, No incontinence Musculoskeletal: neck pain (right posterior) Psychiatric/Neurological: Denies Headache; Numbness; Denies Weakness Physical Exam-General Problems Physical Exam Vital Signs Vital Signs - First Documented 11/08/22 11/09/22 11/10/22 19:28 00:18 08:00 Temp 35.6 Pulse 97 Resp 18 B/P (MAP) 257/123 (167) Pulse Ox 94 O2 Delivery Room Air O2 Flow Rate 2.00 FiO2 21 Capillary Refill : Less Than 3 Seconds General Appearance: no apparent distress, obese HEENT: PERRL/EOMI, pharynx normal; No scleral icterus (R), No scleral icterus (L) Neck: non-tender, supple; No carotid bruit, No lymphadenopathy (R), No lymphadenopathy (L) Respiratory: chest non-tender, lungs clear, no respiratory distress, no accessory muscle use, decreased breath sounds Cardiovascular: regular rate, rhythm, no murmur Peripheral Pulses: 2+ Dorsalis Pedis (R), 2+ Left Dors-Pedis (L), 2+ Radial Pulses (R), 2+ Radial Pulses (L) Gastrointestinal: normal bowel sounds, non tender, soft; No distended, No guarding Extremities: non-tender, no pedal edema, no calf tenderness, normal capillary refill, pedal edema (trace bilateral) 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: alert, normal mood/affect, oriented x 3 Skin: normal color, warm/dry Lymphatic: no adenopathy (cervical) Data Review Labs Laboratory Tests 11/11/22 12:28: Glucometer 174H 11/11/22 16:07: Glucometer 153H 11/11/22 20:56: Glucometer 154H 11/12/22 04:33: White Blood Count 12.2H, Red Blood Count 5.48H, Hemoglobin 15.6, Hematocrit 48, Mean Corpuscular Volume 88, Mean Corpuscular Hemoglobin 29, Mean Corpuscular Hemoglobin Concent 32, Red Cell Distribution Width 13.6, Platelet Count 271, Mean Platelet Volume 10.3, Immature Granulocyte % (Auto) 0, Neutrophils (%) (Auto) 73, Lymphocytes (%) (Auto) 20, Monocytes (%) (Auto) 7, Eosinophils (%) (Auto) 0, Basophils (%) (Auto) 0, Neutrophils # (Auto) 8.9H, Lymphocytes # (Auto) 2.4, Monocytes # (Auto) 0.8, Eosinophils # (Auto) 0.0, Basophils # (Auto) 0.0, Immature Granulocyte # (Auto) 0.1, Sodium Level 134L, Potassium Level 4.7, Chloride Level 101, Carbon Dioxide Level 22, Anion Gap 11, Blood Urea Nitrogen 22H, Creatinine 0.79, Estimat Glomerular Filtration Rate 98, BUN/Creatinine Ratio 28, Glucose Level 183H, Calcium Level 9.7, Corrected Calcium 9.5, Phosphorus Level 3.2, Magnesium Level 2.3, Total Bilirubin 0.5, Aspartate Amino Transf (AST/SGOT) 17, Alanine Aminotransferase (ALT/SGPT) 29, Alkaline Phosphatase 78, Total Protein 7.7, Albumin 4.2 Microbiology 11/08/22 MRSA Screen - Final, Complete MRSA not isolated Assessment/Plan Assessment/Plan Assessment/Plan A: 1. Dysphagia 2. Left-sided numbness secondary to suspected TIA 3. Hypertensive emergency - resolved Plan for EGD today for evaluation of dysphagia as per recommendation of speech therapy following barium swallow study, patient has not had solid or pureed foods in 2 days. Continue monitoring patient for signs and symptoms of progressing neurological symptoms. Continue rechecking and monitoring patient's blood pressure to manage her HTN. Clinical Quality Measures Stroke: Date of last known well: Nov 08, 2022 Time of last known well: 01:00 RAJENDRA COLLINS DO 11/12/22 1159: History of Present Illness History of Present Illness Time Seen by Provider: 11:47 History of Present Illness Surgery asked to consult regarding dysphagia. HPI per ED: 37-year-old female with past medical history of diabetes and hypertension coming in due to left-sided numbness. It started at 1 AM this morning mostly in her leg, worked its way up throughout the day, now she has change in sensation in her left arm as well more than 8 hours ago. She says its more difficult to feel cold on that side. Has a mild headache which is not unusual. She states she has not been taking her blood pressure or diabetes medications for months because of money issues. Denies any trauma, chest pain, shortness of breath, severe abdominal pain, nausea, vomiting, diarrhea, focal weakness, or any other concerns. She does not have regular periods since she has PCOS. When I spoke to pt she stated she could not swallow and wants to do the EGD today. Allergies and Home Medications Allergies Coded Allergies: No Known Drug Allergies (Unverified , 10/16/18) Patient Home Medication List Home Medication List Reviewed: Yes Acetaminophen (Tylenol Extra Strength) 500 Mg Tablet, 1,000 MG PO Q8H PRN for PAIN-MILD (1-4), (Reported) Entered as Reported by: EDWARD HOWARD on 11/09/22 1017 Last Action: Reviewed Albuterol Sulfate (Ventolin Hfa) 1 Puff Puff, 2 PUFF INH Q4H PRN for SHORTNESS OF BREATH, (Reported) Entered as Reported by: EDWARD HOWARD on 11/09/22 1017 Last Action: Reviewed Discontinued Medications Cyclobenzaprine HCl (Cyclobenzaprine HCl) 10 Mg Tablet, 10 MG PO HS PRN for SPASMS Discontinued Reason: No Longer Taking Prescribed by: DONNIE HUI on 08/20/20 2100 Last Action: Discontinued Hydrocodone/Acetaminophen (Hydrocodone-Acetamin 5-325 mg) 1 Each Tablet, 1 EACH PO Q4H Discontinued Reason: No Longer Taking Prescribed by: DONNIE HUI on 02/07/20 1720 Last Action: Discontinued Meloxicam (Meloxicam) 7.5 Mg Tablet, 7.5 MG PO DAILY Discontinued Reason: No Longer Taking Prescribed by: SINDY ADAME on 10/16/18 1245 Last Action: Discontinued Past Dbpetqr-Jwwyeu-Cpwpgo Hx Patient Social History Smoking Status: Current Everyday Smoker (26 years) Alcohol Use?: Yes (once per month) Surgeries History of Surgeries: No Respiratory History of Respiratory Disorde: Yes Respiratory Disorders: COPD Cardiovascular History of Cardiac Disorders: Yes Cardiac Disorders: High Cholesterol, Hypertension Neurological History of Neurological Disord: Yes Neurological Disorders: TIA Genitourinary History of Genitourinary Disor: No Gastrointestinal History of Gastrointestinal Di: No Musculoskeletal History of Musculoskeletal Dis: No Endocrine History of Endocrine Disorders: Yes Endocrine Disorders: Diabetes, Non-Insulin dep HEENT History of HEENT Disorders: No Loss of Vision: Denies Hearing Impairment: Denies Cancer History of Cancer: No Psychosocial History of Psychiatric Problem: No Integumentary History of Skin or Integumenta: No Family Medical History Significant Family History: Diabetes (Father), GI Disease (Pancreatitis, m other), Hypertension (Father) Review of Systems-General Constitutional: No chills, No fever EENTM: No hoarseness, No mouth pain, No throat pain, No throat swelling Respiratory: No cough, No dyspnea on exertion, No short of breath Cardiovascular: No chest pain; edema Gastrointestinal: No abdominal pain, No diarrhea; dysphagia; No hematemesis; nausea, vomiting (last yesterday) Genitourinary: No dysuria, No frequency, No hematuria, No incontinence Musculoskeletal: No joint pain; neck pain (right posterior) Psychiatric/Neurological: Denies Headache; Numbness; Denies Weakness Physical Exam-General Problems Physical Exam General Appearance: no apparent distress, obese Eyes: Bilateral Eye PERRL, Bilateral Eye EOMI HEENT: pharynx normal; No scleral icterus (R), No scleral icterus (L) Neck: non-tender, supple; No carotid bruit Respiratory: chest non-tender, lungs clear, no respiratory distress, no accessory muscle use, decreased breath sounds (possibly body habitus) Cardiovascular: regular rate, rhythm, no murmur Gastrointestinal: non tender, soft; No distended, No guarding Back: no CVA tenderness, no vertebral tenderness Extremities: non-tender, no calf tenderness, normal capillary refill, pedal edema (trace bilateral) 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: alert, normal mood/affect, oriented x 3 Skin: normal color, warm/dry Lymphatic: no adenopathy (cervical, axilla) Assessment/Plan Assessment/Plan Assessment/Plan 1. Dysphagia 2. Left-sided numbness secondary to suspected TIA 3. Hypertensive emergency - resolved Plan for EGD today for evaluation of dysphagia as per recommendation of speech therapy following barium swallow study, patient has not had solid or pureed foods in 2 days. Continue monitoring patient for signs and symptoms of progressing neurological symptoms. Continue rechecking and monitoring patient's blood pressure to manage her HTN. I went over risks and complications of EGD not limited to pain, bleeding, infection, scar and even esophageal perforation. She could have massive bleeding because she got Lovenox this am; she still wants to do EGD. Will get consent. Supervisory-Addendum Brief Verification & Attestation Participated in pt care: history, MDM, physical Personally performed: exam, history, MDM, supervision of care Care discussed with: Medical Student Procedures: n/a Verification and Attestation of Medical Student E/M Service A medical student performed and documented this service. I then reviewed and verified all information documented by the medical student and made modifications to such information, when appropriate. I personally performed a physical exam, medical decision making and then discussed any differences between the notes and made revisions as necessary to create one note. Rajendra Collins , 11/12/22 , 12:02 AFSHAN MOE Nov 12, 2022 11:11 RAJENDRA COLLINS DO Nov 12, 2022 11:59
[2022-11-12] MEDS ORDERED: LACTATED RINGERS 1,000 ML 1,000 ML IV STA (11:55)
[2022-11-12] MEDS ORDERED: HURRICAINE EXT TUBE (BENZOCAINE) XX PRN (12:00)
--- NOTE | 2022-11-12 12:07 | Progress Note ---
SAMARA GONZALES 11/12/22 1207: Subjective Date Seen by a Provider: Nov 12, 2022 Time Seen by a Provider: 10:15 Subjective/Events-last exam Patient seen sitting up in her chair. Barium swallow yesterday showed questionable narrowing or obstruction of the upper esophagus. Patient was started on CLD yesterday. Reports that she did ok with it last night, but this morning is having a hard time swallowing anything at all, even liquids trigger a cough and states it "feels like it's going down the wrong pipe". General surgery consulted, EGD today. BP has remained stable since switching to the lisinopril, has not needed the PRN hydralazine. Patient reports feeling of altered sensation on left side of body unchanged from yesterday. Patient has no new complaints. Review of Systems General: No Chills, No Night Sweats HEENT: No Head Aches, No Visual Changes Pulmonary: No Dyspnea; Cough (triggered by attempting to drink) Cardiovascular: No: Chest Pain, Palpitations Gastrointestinal: No: Nausea, Vomiting Genitourinary: No Dysuria, No Hematuria Musculoskeletal: No: neck pain, back pain Neurological: Numbness (Altered sensation left side of body); No: Weakness Objective Exam Last Set of Vital Signs Vital Signs Date Time Temp Pulse Resp B/P (MAP) Pulse Ox O2 Delivery O2 Flow Rate FiO2 11/12/22 08:46 Nasal Cannula 1.00 11/12/22 08:38 36.4 72 20 153/93 (113) 11/12/22 03:54 96 11/12/22 02:51 25 Capillary Refill : Less Than 3 Seconds I&O Intake and Output 11/12/22 00:00 Intake Total 1000 ml Output Total 800 ml Balance 200 ml Intake Oral 1000 ml Output Urine Total 800 ml # Voids 4 General: Alert, Oriented X3 HEENT: Atraumatic Neck: Supple Lungs: Clear to Auscultation, Normal Air Movement Heart: Regular Rate Abdomen: Normal Bowel Sounds, Soft Extremities: No Clubbing, No Cyanosis Skin: No Rashes, No Breakdown Neuro: Normal Speech Psych/Mental Status: Mental Status NL Results Lab Laboratory Tests 11/11/22 12:28: Glucometer 174H 11/11/22 16:07: Glucometer 153H 11/11/22 20:56: Glucometer 154H 11/12/22 04:33: White Blood Count 12.2H, Red Blood Count 5.48H, Hemoglobin 15.6, Hematocrit 48, Mean Corpuscular Volume 88, Mean Corpuscular Hemoglobin 29, Mean Corpuscular Hemoglobin Concent 32, Red Cell Distribution Width 13.6, Platelet Count 271, Mean Platelet Volume 10.3, Immature Granulocyte % (Auto) 0, Neutrophils (%) (Auto) 73, Lymphocytes (%) (Auto) 20, Monocytes (%) (Auto) 7, Eosinophils (%) (Auto) 0, Basophils (%) (Auto) 0, Neutrophils # (Auto) 8.9H, Lymphocytes # (Auto) 2.4, Monocytes # (Auto) 0.8, Eosinophils # (Auto) 0.0, Basophils # (Auto) 0.0, Immature Granulocyte # (Auto) 0.1, Sodium Level 134L, Potassium Level 4.7, Chloride Level 101, Carbon Dioxide Level 22, Anion Gap 11, Blood Urea Nitrogen 22H, Creatinine 0.79, Estimat Glomerular Filtration Rate 98, BUN/Creatinine Ratio 28, Glucose Level 183H, Calcium Level 9.7, Corrected Calcium 9.5, Phosphorus Level 3.2, Magnesium Level 2.3, Total Bilirubin 0.5, Aspartate Amino Transf (AST/SGOT) 17, Alanine Aminotransferase (ALT/SGPT) 29, Alkaline Phosphatase 78, Total Protein 7.7, Albumin 4.2 11/12/22 11:12: Glucometer 148H Microbiology 11/08/22 MRSA Screen - Final, Complete MRSA not isolated Assessment/Plan Assessment/Plan Assess & Plan/Chief Complaint Hypertensive urgency/emergency - Bp has stayed around 130-140ss since starting on oral lisinopril, continue to monitor, permissive HTN, Hydralazine PRN if needed Questionable CVA/lacunar infarct - CT showed no sign of infarct, MRI unobta inable due to body habitus Dysphagia: Barium swallow showed questionable narrowing/obstruction of upper esophagus, general surgery consulted, EGD today Non-insulin dependent T2DM: Currently on SSI HLD: resume home dose rosuvastatin Probable MOISES: Nursing reports loud snoring, desats while sleeping, recommend outpatient sleep study Concrete Analyst consult ordered Clinical Quality Measures Stroke: Date of last known well: Nov 08, 2022 Time of last known well: 01:00 TATUM TAPIA MD 11/12/22 1455: Supervisory-Addendum Brief Verification & Attestation Participated in pt care: history, physical Personally performed: exam, history Care discussed with: Medical Student Procedures: n/a Verification and Attestation of Medical Student E/M Service A medical student performed and documented this service in my presence. I reviewed and verified all information documented by the medical student and made modifications to such information, when appropriate. I personally performed the physical exam and medical decision making. Tatum Tapia, Nov 12, 2022,14:52 Agree with above, In addition Hypertensive urgency/Emergency Questionable CVA Lacunar infarct - Permissive HTN, having troubles swallowing, NPO currently, restarted cardene until after swallow evaluation 11/11: Better controlled, off PRNs, will transfer to med/surg floor 11/12: BP well controlled NIDDM - SSI C ? MOISES - Needs outpatient workup Dysphagia - Speech evaluation pending 11/11: Barium swallow today does show some disorganization, Start CLD 11/12: EGD today show ulcers, IV PPI, continue CLD, speech therapy SAMARA GONZALES Nov 12, 2022 12:07 TATUM TAPIA MD Nov 12, 2022 14:55
--- NOTE | 2022-11-12 12:15 | Speech Therapy Progress Note ---
Therapy Progress Note Speech pathology is unable to provide P.O. trials at this time due to scheduled EGD and the patient's risks for aspiration. Following the video swallow on 11.11.22, clear liquids were recommended by small sips as the patient was able to pass the consistency safely into the esophagus (no aspiration or laryngeal penetration displayed throughout the video swallow). On 11.11.22, the patient was able to tolerate small sips of clear liquids. On this date, the patient reports difficulty swallowing small sips of thin liquids and reports the sensation of aspiration (per medical chart) with this consistency. Due to this, the patient should remain N.P.O. with additional recommendations provided by gastroenterology following evaluation. ST to continue to monitor the patient's progress and assess for aspiration as appropriate. DONALD CARO Nov 12, 2022 12:15
[2022-11-12] MEDS ORDERED: KETAMINE 50 MG/5 ML SYRINGE ONE (12:29)
--- NOTE | 2022-11-12 13:03 | Progress Note-Post Operative ---
Post-Operative Progess Note Surgeon (s)/Membership Correspondent (s) Surgeon RAJENDRA COLLINS DO Membership Correspondent: none Pre-Operative Diagnosis Dysphagia Post-Operative Diagnosis Esophageal ulcerations Gastric ulcers Gastritis ??Laryngeal paralysis Procedure & Operative Findings Date of Procedure 11/12/22 Procedure Performed/Findings EGD PROCEDURE NOTE: After informed consent was obtained, the patient was brought to the endoscopy suite, placed in bed in left lateral decubitus position. She was administered IV sedation by the STRE[employer]ER who then monitored vitals the entire time, heart rate, blood pressure and pulse ox and the scope was inserted down the mouth, stopping to look at vocal cords. It appeared that the right vocal cord may have been paralyzed and not working. Continued into the esophagus and noted what looked like scab covered ulcers; picture taken. Pushed into the stomach, pushed past the antrum into the duodenum. Duodenum looked good. Pulled back, noted severe Gastritis and gastric ulcers; took pictures. I elected not to do any biopsies because the patient had gotten Lovenox this am. I then retroflexed the scope, did not see a hiatal hernia, took a picture and then pulled the scope into the GE junction. and took another picture. Pushed the scope back into the stomach, suctioned all the air out of the stomach and some retained food particles. At this point pulled the scope up the esophagus and again took pictures of the vocal cords. This time on one of the pictures, I could see both. I did not see any other deformity or cause for the dysphagia; the scope easily went down. Finally, pulled the scope out of the mouth. The patient tolerated the procedure, and she recovered in endoscopy suite. Anesthesia Type IV sedation by [employer] Estimated Blood Loss Estimated blood loss (mL): none Specimens/Packing Specimens Removed none RAJENDRA COLLINS DO Nov 12, 2022 13:03
[2022-11-13 03:23] VITALS: BP 158/98
[2022-11-13 07:01] LABS: EOSINOPHILS % (AUTO) 0 % (0-10); HEMOGLOBIN 15.4 g/dL (11.5-16.0); MEAN CORPUSCULAR VOLUME 89 fL (80-99)
[2022-11-13 07:03] LABS: BASOPHILS # (AUTO) 0.1 10^3/uL (0.0-0.1); BASOPHILS % (AUTO) 1 % (0-10); HEMATOCRIT 48 % (35-52); LYMPHOCYTES # (AUTO) 2.7 10^3/uL (1.0-4.0); LYMPHOCYTES % (AUTO) 29 % (12-44); MEAN CORPUSCULAR HEMOGLOBIN 28 pg (25-34); MEAN CORPUSCULAR HGB CONC 32 g/dL (32-36); MEAN PLATELET VOLUME 10.3 fL (9.0-12.2); MONOCYTES # (AUTO) 0.8 10^3/uL (0.0-1.0); MONOCYTES % (AUTO) 9 % (0-12); NEUTROPHILS # (AUTO) 5.7 10^3/uL (1.8-7.8); NEUTROPHILS % (AUTO) 61 % (42-75); PLATELET COUNT 208 10^3/uL (130-400); WHITE BLOOD COUNT 9.3 10^3/uL (4.3-11.0)
[2022-11-13 07:20] LABS: ALBUMIN 4.1 GM/DL (3.2-4.5); BILIRUBIN,TOTAL 0.6 MG/DL (0.1-1.0); CALCIUM 9.6 MG/DL (8.5-10.1); CREATININE SERUM 0.73 MG/DL (0.60-1.30); MAGNESIUM 2.2 MG/DL (1.6-2.4); PHOSPHORUS 3.7 MG/DL (2.3-4.7); POTASSIUM 4.2 MMOL/L (3.6-5.0); TOTAL PROTEIN 7.4 GM/DL (6.4-8.2)
[2022-11-13] MEDS: inSUlin ASPART 1 UNIT/0.01 ML (PER UNIT) SC SCH ×4 (07:35→20:15)
[2022-11-13] MEDS: MAGNESIUM 1 GM/100 ML IVPB 100 ML IV SCH (07:37)
[2022-11-13] MEDS: POTASSIUM CL 10MEQ/50ML IVPB 50 ML IV SCH (07:37)
[2022-11-13] MEDS: POTASSIUM CHLORIDE 20 MEQ TABLET PO SCH (07:38)
--- NOTE | 2022-11-13 08:06 | Progress Note - Surgery ---
AFSHAN MOE 11/13/22 0806: Subjective Date Seen by a Provider: Nov 13, 2022 Time Seen by a Provider: 07:30 Subjective/Events-last exam Patient is lying in bed comfortably at time of evaluation. The patient reports her dysphagia is slightly improved today. She states she is still only taking clear fluids, but has an easier time when compared to yesterday. She also reports decreased numbness to her arms and legs when compared to the last several days. She states she is urinating on her own and making a normal amount of urine for her. She states she still has not had a bowel movement since admission to the hospital. The patient denies any weakness in her extremities, fever, chills, headache, sore throat, chest pain, shortness of breath, abdominal pain, or urinary symptoms. The patient does note her right neck does still hurt, and it is worse than yesterday and the day before. Review of Systems General: No Chills HEENT: No Head Aches Pulmonary: No Dyspnea Cardiovascular: No: Chest Pain Gastrointestinal: No: Nausea, Vomiting, Abdominal Pain, Diarrhea Genitourinary: No Dysuria, No Frequency, No Hematuria, No Retention Musculoskeletal: neck pain Neurological: Numbness; No: Weakness Objective Exam Vital Signs Date Time Temp Pulse Resp B/P (MAP) Pulse Ox O2 Delivery O2 Flow Rate FiO2 11/13/22 03:23 36.3 69 20 158/98 (118) 97 Nasal Cannula 0.50 11/12/22 23:39 35.8 76 20 145/77 (99) 98 Nasal Cannula 0.50 11/12/22 20:45 Nasal Cannula 1.00 11/12/22 19:30 35.9 72 20 136/82 (100) 98 Nasal Cannula 1.00 11/12/22 18:45 100 Nasal Cannula 1.00 11/12/22 15:40 35.9 69 20 137/87 (104) 97 Nasal Cannula 1.00 11/12/22 12:50 82 16 100 Room Air 11/12/22 12:20 35.8 75 18 139/84 (102) 92 Room Air 11/12/22 08:46 Nasal Cannula 1.00 11/12/22 08:38 36.4 72 20 153/93 (113) Room Air I & O 11/13/22 07:00 Intake Total 1600 ml Output Total 550 ml Balance 1050 ml Capillary Refill : Less Than 3 Seconds General Appearance: No Apparent Distress, Obese, Other (odor of urine present at bedside) HEENT: PERRL/EOMI, Normal ENT Inspection Neck: Lymphadenopathy (R), Tender Lateral Respiratory: Lungs Clear, No Respiratory Distress, Decreased Breath Sounds Cardiovascular: Regular Rate, Rhythm, No Murmur Peripheral Pulses: 2+ Dorsalis Pedis (R), 2+ Left Dors-Pedis (L), 2+ Radial Pulses (R), 2+ Radial Pulses (L) Gastrointestinal: non tender, soft; No distended, No guarding Extremity: Non Tender, No Calf Tenderness, Pedal Edema (trace bilateral) 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: Alert, Oriented x3, Normal Mood/Affect Skin: Normal Color, Warm/Dry Lymphatic: Other Results Lab Laboratory Tests 11/12/22 11:12: Glucometer 148H 11/12/22 16:20: Glucometer 145H 11/12/22 21:00: Glucometer 189H 11/13/22 06:30: Sodium Level 139, Potassium Level 4.2, Chloride Level 101, Carbon Dioxide Level 26, Anion Gap 12, Blood Urea Nitrogen 15, Creatinine 0.73, Estimat Glomerular Filtration Rate 107, BUN/Creatinine Ratio 21, Glucose Level 167H, Calcium Level 9.6, Corrected Calcium 9.5, Phosphorus Level 3.7, Magnesium Level 2.2, Total Bilirubin 0.6, Aspartate Amino Transf (AST/SGOT) 27, Alanine Aminotransferase (ALT/SGPT) 38, Alkaline Phosphatase 73, Total Protein 7.4, Albumin 4.1 11/13/22 06:36: White Blood Count 9.3, Red Blood Count 5.43H, Hemoglobin 15.4, Hematocrit 48, Mean Corpuscular Volume 89, Mean Corpuscular Hemoglobin 28, Mean Corpuscular Hemoglobin Concent 32, Red Cell Distribution Width 13.5, Platelet Count 208, Mean Platelet Volume 10.3, Immature Granulocyte % (Auto) 0, Neutrophils (%) (Auto) 61, Lymphocytes (%) (Auto) 29, Monocytes (%) (Auto) 9, Eosinophils (%) (Auto) 0, Basophils (%) (Auto) 1, Neutrophils # (Auto) 5.7, Lymphocytes # (Auto) 2.7, Monocytes # (Auto) 0.8, Eosinophils # (Auto) 0.0, Basophils # (Auto) 0.1, Immature Granulocyte # (Auto) 0.0, Percent Immature Platelet Fraction 5.7 Microbiology 11/08/22 MRSA Screen - Final, Complete MRSA not isolated Assessment/Plan Assessment/Plan Assessment/Plan A: 1. Dysphagia 2. Left-sided numbness secondary to suspected TIA 3. Hypertensive emergency - resolved 4. Esophageal and gastric ulcers P: Patient's EGD results were discussed, and she was informed that there was no clear cause for her dysphagia on her EGD. Patient was instructed to maintain her clear fluids diet, and her reported improved ease of swallowing is encouraging. She should continue working with speech therapy. Continue monitoring patient for signs and symptoms of worsening or returning neurologic dysfunction. Continue monitoring patient's blood pressure to manage hypertensive urgency/emergency. Discussed outpatient EGD or inpatient EGD next week following Lovenox cessation in order to biopsy esophageal and gastric ulcers. Clinical Quality Measures Stroke: Date of last known well: Nov 08, 2022 Time of last known well: 01:00 CONG DIETRICH DO 11/13/22 1031: Subjective Time Seen by a Provider: 09:39 Subjective/Events-last exam Pt seen sitting up in chair, states drinking liquids better today. She is asking to go home. Review of Systems General: No Chills Pulmonary: No Dyspnea Cardiovascular: No: Chest Pain Gastrointestinal: No: Nausea, Vomiting, Abdominal Pain Musculoskeletal: neck pain Objective Exam General Appearance: No Apparent Distress, Obese (super morbidly), Other (odor of urine present at bedside) HEENT: PERRL/EOMI, Pharynx Normal Neck: Lymphadenopathy (R), Tender Lateral Respiratory: Lungs Clear, No Respiratory Distress (diffuse), Decreased Breath Sounds Cardiovascular: Regular Rate, Rhythm, No Murmur Gastrointestinal: non tender, soft Extremity: Non Tender, No Calf Tenderness, Pedal Edema (trace bilateral) 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: Alert, Oriented x3, Normal Mood/Affect Skin: Normal Color, Warm/Dry Assessment/Plan Assessment/Plan Assessment/Plan 1. Dysphagia 2. Left-sided numbness secondary to suspected TIA 3. Hypertensive emergency - resolved 4. Esophageal and gastric ulcers Patient's EGD results were discussed, and she was informed that there was no clear cause for her dysphagia on her EGD; however, did notice some possible vocal cord paraylsis. Patient was instructed to maintain her clear fluids diet, and her reported improved ease of swallowing is encouraging. She should continue working with speech therapy and would probably benefit from Neurology consult. Continue monitoring patient for signs and symptoms of worsening or returning neurologic dysfunction. Continue monitoring patient's blood pressure to manage hypertensive urgency/emergency. Discussed outpatient EGD or inpatient EGD next week following Lovenox cessation in order to biopsy esophageal and gastric ulcers. Supervisory-Addendum Brief Verification & Attestation Participated in pt care: history, MDM, physical Personally performed: exam, history, MDM, supervision of care Care discussed with: Medical Student Procedures: n/a Verification and Attestation of Medical Student E/M Service A medical student performed and documented this service. I then reviewed and verified all information documented by the medical student and made modifications to such information, when appropriate. I personally performed a physical exam, medical decision making and then discussed any differences between the notes and made revisions as necessary to create one note. Cong Dietrich , 11/13/22 , 10:31 AFSHAN MOE Nov 13, 2022 08:06 CONG DIETRICH DO Nov 13, 2022 10:31
[2022-11-13 08:23] VITALS: BP 171/80
[2022-11-13] MEDS: ENOXAPARIN 60 MG/0.6 ML SYRINGE SC SCH ×2 (09:19→20:06)
[2022-11-13] MEDS: DOCUSATE SODIUM 100 MG CAPSULE PO SCH ×2 (09:19→21:45)
[2022-11-13] MEDS: ASPIRIN 81 MG CHEWABLE TABLET PO SCH (09:19)
[2022-11-13 11:10] VITALS: BP 161/83
[2022-11-13] MEDS ORDERED: amLODIPine 5 MG TABLET PO NR (12:00)
[2022-11-13] MEDS ORDERED: LACTULOSE SYRUP 10GM/15ML 30ML UDC PO NR (12:00)
--- NOTE | 2022-11-13 12:25 | Progress Note - Hospitalist ---
DAVID LOMAS 11/13/22 1225: Subjective HPI/CC On Admission Date Seen by Provider: Nov 13, 2022 Time Seen by Provider: 11:30 Left sided numbness Subjective/Events-last exam Was seen in her room this morning. She was sitting upright in her chair and appeared comfortable. She says her dysphagia is improving some. She had not attempted solids yet when I saw her and for liquids she seemed to be choking /struggling to get it down. She says it is much better with thickening agents. Her EGD with general surgery didn't reveal any obvious causes of her dysphagia. She denies headaches, nausea, vomiting, diarrhea, dyspnea. She says her weakness is getting better, more so in her legs than upper extremity. She says her sensation is improving too but is still having difficulty distinguishing temperature. She also endorses recent constipation. Review of Systems HEENT: No Head Aches Pulmonary: No Dyspnea Cardiovascular: Edema; No: Chest Pain, Palpitations Gastrointestinal: Constipation; No: Nausea, Vomiting, Abdominal Pain, Diarrhea Neurological: Weakness, Numbness; No: Change in speech Objective Exam Vital Signs Vital Signs Date Time Temp Pulse Resp B/P (MAP) Pulse Ox O2 Delivery O2 Flow Rate FiO2 11/13/22 11:10 36.1 66 18 161/83 (109) 97 Nasal Cannula 1.00 11/12/22 02:51 25 Capillary Refill : Less Than 3 Seconds General Appearance: No Apparent Distress, WD/WN, Obese Neck: Normal Inspection, Supple Respiratory: Chest Non Tender, Lungs Clear, Normal Breath Sounds, No Accessory Muscle Use, No Respiratory Distress Cardiovascular: Regular Rate, Rhythm, No Gallop, No Murmur, Normal Peripheral Pulses Rectal: Deferred Extremity: Non Tender, No Calf Tenderness; No No Pedal Edema (1+ pitting bilateral lower extremities) 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: Alert, Oriented x3, Normal Mood/Affect Skin: Normal Color, Warm/Dry Results/Procedures Lab Laboratory Tests 11/13/22 06:30 11/13/22 06:36 Patient resulted labs reviewed. Assessment/Plan Assessment and Plan Assess & Plan/Chief Complaint - Hypertensive emergency > BP 257/123 in ED > permissive HTN with nicardipine drip in 170s systolic, since discontinued, now on 40mg lisinopril PO > BP 171/80 (MAP 110) this morning > Add Norvasc 5mg BID - Probable obstructive sleep apnea > given body habitus, reported snoring, and episodes of desaturation > HTN likely secondary to MOISES > recommend sleep study > recommend weight loss - T2DM > BG 167 this morning > continue sliding scale - Dysphagia > continue with speech therapy > continue use of thickening agent - Probable CVA > unconfirmed b/c no MRI due to body habitus > continue blood pressure control with Norvasc, Lisinopril > weakness/sensation improving > continue to monitor Clinical Quality Measures Stroke: Date of last known well: Nov 08, 2022 Time of last known well: 01:00 YANNI WEST DO 11/14/22 0548: Subjective Subjective/Events-last exam Much improved status Thickening agent has helped swallowing Objective Exam General Appearance: No Apparent Distress, WD/WN, Chronically ill, Obese Assessment/Plan Assessment and Plan Assess & Plan/Chief Complaint Continue thickened agent for dysphagia Needs sleep study to confirm MOISES Supervisory-Addendum Brief Verification & Attestation Participated in pt care: history, MDM, physical Personally performed: exam, history, MDM, supervision of care Care discussed with: Medical Student Procedures: n/a Results interpretation: Verified all documentation Verification and Attestation of Medical Student E/M Service A medical student performed and documented this service in my presence. I reviewed and verified all information documented by the medical student and made modifications to such information, when appropriate. I personally performed the physical exam and medical decision making. Yanni West, Nov 14, 2022,05:48 DAVID LOMAS Nov 13, 2022 12:25 YANNI WEST DO Nov 14, 2022 05:48
--- NOTE | 2022-11-13 12:51 | Speech Therapy Daily Note ---
Speech Daily Progress Note Subjective Date Seen by Provider: Nov 13, 2022 Time Seen by Provider: 10:20 The patient was seated upright in her recliner, awake and alert, upon entrance to her room by the clinician. The patient greeted the clinician appropriately and was agreeable to participation in the dysphagia treatment session. The patient reports she feels her swallowing function is slowly improving, as she is able to clear more material (thin liquid) from the pharyngeal region on this date. The patient stated she was attempting a chin tuck (stating it was recommended "by a nurse") however it did not appear to be helpful. The speech pathologist highly recommended against a chin tuck as the patient displays moderate retention of bolus material in the pyriform sinuses following the initial swallow. A chin tuck places the patient at a risk for the residual material in the pyriform sinuses to fall forward into the airway with a chin tucked position. A chin tuck is not recommended when pyriform sinus residue is visualized. The patient verbalized comprehension of the discussion. Objective The patient was agreeable to P.O. trials of thin liquid, mildly thick liquid and puree. The patient reported a right head turn appears to aid in clearance of material from the pyriform sinuses. Regardless of right head turn, the patient displays intermittent expectoration of bolus material. The patient will elicit a swallow, then expectorate (a hacking sound/behavior) the bolus material into the oral cavity and attempt a second swallow. Intermittently, the thin liquid will clear however intermittently, the thin liquid will not clear and she will expectorate the material into a tissue. The patient displayed similar results with the puree. The clinician does not have an explanation for the patient's pharyngeal swallow difficulty or the timing, frequency, or posture of why some boluses clear the pharynx and some boluses are expectorated into the oral cavity. Mildly thick liquids via teaspoon and straw were attempted with a right head turn, no head turn, and a left head turn. A right head turn was consistently efficient at clearing bolus material with two effortful swallows. The patient consistently palpates laryngeal elevation and excursion throughout the swallow response. The clinician can only suspect cricopharyngeal dysfunction for the difficulty the patient is experiencing. Due to the limited P.O. the patient can consume, the clinician is concerned of her ability to meet her daily nutritional and hydration goals with P.O. intake alone. The patient remains at an extremely high risk for aspiration due to the unexplained pharyngeal residue following the swallow. An effortful swallow exercise was introduced and encouraged for practice between skilled treatment sessions. Recommendations: - Clear liquid, mildly thick, diet consistency as tolerated. - Fully upright and alert for P.O. intake. - Right head turn and effortful swallow (x2) with all boluses. - Crush medication for administration. - Monitor for s/s of suspected aspiration with P.O. intake. If demonstrated, place the patient N.P.O. The results were provided to the patient and the patient's RN following the evaluation. Thickening product was introduced and education was provided to the patient on how to thicken a consistency. The patient verbalized comprehension. Assessment Assessment Current Status: Fair Progress Treatment Plan Continue Plan of Care Speech Short Term Goals Short Term Goals Short Term Goals 1. The patient will display safe swallowing precautions with 90% accuracy, independently. Time Frame-STG: Three Days. Speech Evaporator Helper Goals Half-Way Goals 1. The patient will tolerate the least restrictive diet consistency without s/s of suspected aspiration. Time Frame: Five Days. Speech-Plan Treatment Plan Speech Therapy Treatment Plan: Continue Plan of Care Treatment Duration: Nov 13, 2022 Frequency: 2 times per week Estimated Hrs Per Day: .25 hour per day Rehab Potential: Fair Pt/Family Agrees to Plan: Yes Safety Risks/Education Teaching Recipient: Patient Teaching Methods: Demonstration, Discussion Response to Teaching: Verbalize Understanding, Return Demonstration Education Topics Provided: Results, Recommedations, Plan of Care, Safe Swallowing Strategies, S/s of Suspected Aspiration Time Speech Therapy Time In: 10:20 Speech Therapy Time Out: 10:40 DATE: Nov 13, 2022 Total Billed Time: 20 Billed Treatment Time 1, DONALD GRAJEDA Nov 13, 2022 12:51
[2022-11-13 16:08] VITALS: BP 161/83
[2022-11-13 20:03] VITALS: BP 143/82
[2022-11-13] MEDS: amLODIPine 5 MG TABLET PO SCH (20:06)
[2022-11-13] MEDS: LACTULOSE SYRUP 10GM/15ML 30ML UDC PO SCH (21:45)
[2022-11-13 23:54] VITALS: BP 138/74
[2022-11-14 04:40] VITALS: BP 166/90
[2022-11-14 05:33] LABS: BASOPHILS % (AUTO) 0 % (0-10); EOSINOPHILS % (AUTO) 0 % (0-10); HEMATOCRIT 47 % (35-52); HEMOGLOBIN 15.2 g/dL (11.5-16.0); LYMPHOCYTES # (AUTO) 2.5 10^3/uL (1.0-4.0); LYMPHOCYTES % (AUTO) 31 % (12-44); MEAN CORPUSCULAR HEMOGLOBIN 29 pg (25-34); MEAN CORPUSCULAR HGB CONC 33 g/dL (32-36); MEAN CORPUSCULAR VOLUME 88 fL (80-99); MONOCYTES # (AUTO) 0.6 10^3/uL (0.0-1.0); MONOCYTES % (AUTO) 8 % (0-12); NEUTROPHILS # (AUTO) 4.9 10^3/uL (1.8-7.8); NEUTROPHILS % (AUTO) 61 % (42-75); PLATELET COUNT 202 10^3/uL (130-400)
[2022-11-14 05:41] LABS: POTASSIUM 4.1 MMOL/L (3.6-5.0)
[2022-11-14 05:53] LABS: ALBUMIN 3.9 GM/DL (3.2-4.5); BILIRUBIN,TOTAL 0.6 MG/DL (0.1-1.0); CALCIUM 9.2 MG/DL (8.5-10.1); CREATININE SERUM 0.7 MG/DL (0.60-1.30); MAGNESIUM 2.1 MG/DL (1.6-2.4); PHOSPHORUS 3.8 MG/DL (2.3-4.7); TOTAL PROTEIN 6.8 GM/DL (6.4-8.2)
[2022-11-14] MEDS: POTASSIUM CL 10MEQ/50ML IVPB 50 ML IV SCH (05:55)
[2022-11-14] MEDS: inSUlin ASPART 1 UNIT/0.01 ML (PER UNIT) SC SCH ×2 (05:55→11:30)
[2022-11-14] MEDS: POTASSIUM CHLORIDE 20 MEQ TABLET PO SCH (05:55)
[2022-11-14] MEDS: MAGNESIUM 1 GM/100 ML IVPB 100 ML IV SCH (05:55)
[2022-11-14 07:33] VITALS: BP 152/85
[2022-11-14] MEDS: DOCUSATE SODIUM 100 MG CAPSULE PO SCH (07:54)
[2022-11-14] MEDS: ASPIRIN 81 MG CHEWABLE TABLET PO SCH (07:54)
[2022-11-14] MEDS: LACTULOSE SYRUP 10GM/15ML 30ML UDC PO SCH (07:54)
[2022-11-14] MEDS: amLODIPine 5 MG TABLET PO SCH (07:54)
[2022-11-14] MEDS: ENOXAPARIN 60 MG/0.6 ML SYRINGE SC SCH (07:55)
[2022-11-14] MEDS ORDERED: ATOR40TA PO (09:39)
[2022-11-14] MEDS ORDERED: LISI20TA26 PO (09:39)
[2022-11-14] MEDS ORDERED: ASPI81TA64 PO (09:39)
[2022-11-14] MEDS ORDERED: AMLO-250 PO (09:39)
[2022-11-14] MEDS ORDERED: [UNRECOGNIZED DRUG - OTHER] PO (09:41)
--- NOTE | 2022-11-14 09:42 | Discharge Summary ---
Discharge Summary Hospital Course Was the Problem List Reviewed?: Yes Problems/Dx: (1) Hypertensive urgency (2) Dysphagia (3) Duodenal ulcer Hospital Course Date of Admission: Nov 12, 2022 at 15:08 Admission Diagnosis : Family Physician/Provider: Shelly Conde MD Date of Discharge: 11/14/22 Discharge Diagnosis: [ ] Hospital Course: Patient had a lengthy course after admitted for HTN urgency and dysphagia suspicious for CVA but her weight did not allow MRI. Dysphagia was addressed by EGD revealing duodenal ulcers and ST gave her positioning to help with dysphagia and thickeners were very helpful. Overal her BP was improved and was ready for DC on BP meds and statin and ASA. Labs and Pending Lab Test: Laboratory Tests 11/13/22 11:08: Glucometer 150H 11/13/22 16:53: Glucometer 127H 11/13/22 20:13: Glucometer 177H 11/14/22 04:45: Glucometer 159H 11/14/22 05:28: White Blood Count 8.0, Red Blood Count 5.30H, Hemoglobin 15.2, Hematocrit 47, Mean Corpuscular Volume 88, Mean Corpuscular Hemoglobin 29, Mean Corpuscular Hemoglobin Concent 33, Red Cell Distribution Width 13.1, Platelet Count 202, Mean Platelet Volume 10.0, Immature Granulocyte % (Auto) 0, Neutrophils (%) (Auto) 61, Lymphocytes (%) (Auto) 31, Monocytes (%) (Auto) 8, Eosinophils (%) (Auto) 0, Basophils (%) (Auto) 0, Neutrophils # (Auto) 4.9, Lymphocytes # (Auto) 2.5, Monocytes # (Auto) 0.6, Eosinophils # (Auto) 0.0, Basophils # (Auto) 0.0, Immature Granulocyte # (Auto) 0.0, Sodium Level 139, Potassium Level 4.1, Chloride Level 102, Carbon Dioxide Level 26, Anion Gap 11, Blood Urea Nitrogen 11, Creatinine 0.70, Estimat Glomerular Filtration Rate 113, BUN/Creatinine Ratio 16, Glucose Level 152H, Calcium Level 9.2, Corrected Calcium 9.3, Phosphorus Level 3.8, Magnesium Level 2.1, Total Bilirubin 0.6, Aspartate Amino Transf (AST/SGOT) 25, Alanine Aminotransferase (ALT/SGPT) 37, Alkaline Phosphatase 65, Total Protein 6.8, Albumin 3.9 Microbiology 11/08/22 MRSA Screen - Final, Complete MRSA not isolated Home Meds Active Lipitor (Atorvastatin Calcium) 40 Mg Tablet 40 Mg PO DAILY Children's Aspirin (Aspirin) 81 Mg Tab.chew 81 Mg PO DAILY Lisinopril 20 Mg Tablet 40 Mg PO DAILY Amlodipine Besylate 5 Mg Tablet 5 Mg PO BID Reported Tylenol Extra Strength (Acetaminophen) 500 Mg Tablet 1,000 Mg PO Q8H PRN Ventolin Hfa (Albuterol Sulfate) 1 Puff Puff 2 Puff INH Q4H PRN Assessment/Pt Instructions pcp 1 week Discharge Planning: <30 minutes discharge planning Discharge Instructions Discharge Diet: Liquid Diet (with thickener) Activity as Tolerated: Yes Discharge Physical Examination Vital Signs Vital Signs Date Time Temp Pulse Resp B/P (MAP) Pulse Ox O2 Delivery O2 Flow Rate FiO2 11/14/22 09:09 Nasal Cannula 1.00 11/14/22 07:33 36.3 67 16 152/85 (107) 97 11/12/22 02:51 25 General Appearance: No Apparent Distress, WD/WN, Chronically ill Allergies: Coded Allergies: No Known Drug Allergies (Unverified , 10/16/18) Discharge Summary Date of Admission Nov 12, 2022 at 15:08 Date of Discharge Discharge Date: Nov 14, 2022 Discharge Diagnosis Continue thickened agent for dysphagia Needs sleep study to confirm MOISES Clinical Quality Measures Stroke: Date of last known well: Nov 08, 2022 Time of last known well: 01:00 RO WEST DO Nov 14, 2022 09:42
[2022-11-14 11:45] VITALS: BP 152/85
== END 2022-11-14 11:45 | disposition home or self-care (01) | DRG 304 ==
LOC: EDUNIT# 19:26 → ER FS 19:29 → ICU 23:10 → 4TH 11-11 14:27 → OBSVTOIN 11-12 15:08
PROVIDERS: ADMIT Internal Medicine; ATTEND Internal Medicine
PROC: 0DJ08ZZ Inspection of Upper Intestinal Tract, Via Natural or Artificial Opening Endoscopic (ICD-10-PCS; principal; 2022-11-12 12:30)
DX: I16.1 Hypertensive emergency (principal); I63.81 Other cerebral infarction due to occlusion or stenosis of small artery; K22.10 Ulcer of esophagus without bleeding; G81.94 Hemiplegia, unspecified affecting left nondominant side; K25.9 Gastric ulcer, unspecified as acute or chronic, without hemorrhage or perforation; E11.9 Type 2 diabetes mellitus without complications; I10 Essential (primary) hypertension; E78.00 Pure hypercholesterolemia, unspecified; G47.33 Obstructive sleep apnea (adult) (pediatric); E66.9 Obesity, unspecified; K26.9 Duodenal ulcer, unspecified as acute or chronic, without hemorrhage or perforation; F17.210 Nicotine dependence, cigarettes, uncomplicated; R29.701 NIHSS score 1
CPT/HCPCS: 36415; 70450; 71045; 74230; 80053; 80061; 81000; 82947; 83735; 84100; 84484; 84703; 85007; 85025; 85027; 85610; 85730; 87081; 93005; 93041; 94664; 94760; G0378

== ENCOUNTER 2022-11-20 18:56 | Emergency (ER) | payer BC ==
[~2022-11-20] VITALS: Ht 157.4 cm; Wt 143.9 kg
[2022-11-20 18:56] VITALS: BP 145/85
[~2022-11-20 18:56] MED LIST changes: +ACET-2267 PO; +AMLO-250 PO; +ASPI81TA64 PO; +ATOR40TA PO; +LISI20TA26 PO; +RT-ALBUINH INH; +[UNRECOGNIZED DRUG - OTHER] PO
--- NOTE | 2022-11-20 19:08 | ED GI ---
General Chief Complaint: Abdominal/GI Problems Stated Complaint: BOWEL CONSTIPATION Source of Information: Patient Exam Limitations: No Limitations History of Present Illness Date Seen by Provider: Nov 20, 2022 Time Seen by Provider: 18:56 Initial Comments 37-year-old female presents to the emergency department today for constipation. She was recently released from the hospital and discharged a couple of days ago. She was started on Colace today. She had a bowel movement yesterday from about noon today. She states the stools are formed causing her to bleed and very painful when she pushes. No nausea or vomiting. No fevers or chills. All other systems reviewed and negative except documented per HPI. Voice recognition software was used to help create this chart Allergies and Home Medications Allergies Coded Allergies: No Known Drug Allergies (Unverified , 10/16/18) Patient Home Medication List Home Medication List Reviewed: Yes Acetaminophen (Tylenol Extra Strength) 500 Mg Tablet, 1,000 MG PO Q8H PRN for PAIN-MILD (1-4), (Reported) Entered as Reported by: EDWARD HOWARD on 11/09/22 1017 Albuterol Sulfate (Ventolin Hfa) 1 Puff Puff, 2 PUFF INH Q4H PRN for SHORTNESS OF BREATH, (Reported) Entered as Reported by: EDWARD HOWARD on 11/09/22 1017 Amlodipine Besylate (Amlodipine Besylate) 5 Mg Tablet, 5 MG PO BID Prescribed by: RO WEST on 11/14/22938 Aspirin (Children's Aspirin) 81 Mg Tab.chew, 81 MG PO DAILY Prescribed by: RO WEST on 11/14/22938 Atorvastatin Calcium (Lipitor) 40 Mg Tablet, 40 MG PO DAILY Prescribed by: RO WEST on 11/14/22938 Lisinopril (Lisinopril) 20 Mg Tablet, 40 MG PO DAILY Prescribed by: RO WEST on 11/14/22938 [thickener] , EA PO AC, (DME) Prescribed by: RO WEST on 11/14/22940 Review of Systems Review of Systems Constitutional: see HPI Past Ifkgwwi-Xcdaly-Cfzboo Hx Patient Social History Tobacco Use?: No Use of E-Cig and/or Vaping dev: No Substance use?: No Alcohol Use?: No Seasonal Allergies Seasonal Allergies: No Past Medical History Surgeries: No Respiratory: Yes COPD Cardiac: Yes High Cholesterol, Hypertension Neurological: Yes TIA Genitourinary: No Gastrointestinal: No Musculoskeletal: No Endocrine: Yes Diabetes, Non-Insulin dep HEENT: No Loss of Vision: Denies Hearing Impairment: Denies Cancer: No Psychosocial: No Integumentary: No Blood Disorders: No Family Medical History Diabetes, GI Disease, Hypertension Physical Exam Vital Signs Capillary Refill : Height/Weight/BMI Height: 5'2.00" Weight: 313lbs. oz. 141.904815kg; 57.42 BMI Method:Stated General Appearance: WD/WN, no apparent distress HEENT: normal ENT inspection, pharynx normal Neck: non-tender Respiratory: chest non-tender, lungs clear, normal breath sounds, no respiratory distress, no accessory muscle use Cardiovascular: regular rate, rhythm, no murmur Gastrointestinal: normal bowel sounds, non tender, soft, no organomegaly Departure Communication (Admissions) Patient is hemodynamically stable. She is having bowel movements, no evidence for obstruction. She is having pain and blood with bowel movements, likely from the think of them. Advise she use MiraLAX and continue Colace. Discharged in stable condition. Impression Primary Impression: Constipation Qualified Codes: K59.00 - Constipation, unspecified Additional Impression: Pain with bowel movements Disposition: HOME, SELF-CARE Condition: Stable Departure-Patient Inst. Referrals: JACQUELIN WIGGINS APRN (PCP) Primary Care Physician [facility] (Family) Primary Care Physician Patient Instructions: Constipation, Adult ED Add. 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 Start this tonight. Continue Colace. Increase your fluids at home. Your bowel movements are very likely to be painful and have blood with the next several movements. Return to the emergency department for any severe concerns. Follow-up with your primary doctor for any nonemergent needs. All discharge instructions reviewed with patient and/or family. Voiced understanding. KASIE MCCOY DO Nov 20, 2022 19:08
== END 2022-11-20 19:09 | disposition home or self-care (01) ==
LOC: EDUNIT# 18:56 → ER FS 18:58
DX: K59.00 Constipation, unspecified (principal); Z28.310 Unvaccinated for COVID-19
CPT/HCPCS: 99281

== ENCOUNTER 2022-11-21 17:11 | Emergency (ER) | payer BC ==
[~2022-11-21] VITALS: Ht 157.5 cm; Wt 144.3 kg
--- NOTE | 2022-11-21 17:37 | ED GI ---
General Chief Complaint: Abdominal/GI Problems Stated Complaint: BOWEL CONSTIPATION Source of Information: Patient, Old Records Exam Limitations: No Limitations History of Present Illness Date Seen by Provider: Nov 21, 2022 Time Seen by Provider: 17:13 Initial Comments 37-year-old female with past medical history of potential recent stroke with left-sided residual numbness coming in due to constipation. She has not had a bowel movement in well over a week which is very unusual for her. She has not been on narcotics. She started stool softeners after discharge from the hospital. She was seen in the ER yesterday and was started on MiraLAX which she has had a couple doses now. She had a small pebble worth of a bowel movement yesterday after straining a long time. She is straining so hard that she noticed some blood in the toilet, not a large amount. Does not take any blood thinners. Otherwise denying any other acute complaints. Is not having any severe abdominal pain, nausea, vomiting, fever, or any other concerns. Allergies and Home Medications Allergies Coded Allergies: No Known Drug Allergies (Unverified , 10/16/18) Patient Home Medication List Home Medication List Reviewed: Yes Acetaminophen (Tylenol Extra Strength) 500 Mg Tablet, 1,000 MG PO Q8H PRN for PAIN-MILD (1-4), (Reported) Entered as Reported by: EDWARD HOWARD on 11/09/22 1017 Albuterol Sulfate (Ventolin Hfa) 1 Puff Puff, 2 PUFF INH Q4H PRN for SHORTNESS OF BREATH, (Reported) Entered as Reported by: EDWARD HOWARD on 11/09/22 1017 Amlodipine Besylate (Amlodipine Besylate) 5 Mg Tablet, 5 MG PO BID Prescribed by: RO WEST on 11/14/22938 Aspirin (Children's Aspirin) 81 Mg Tab.chew, 81 MG PO DAILY Prescribed by: RO WEST on 11/14/22938 Atorvastatin Calcium (Lipitor) 40 Mg Tablet, 40 MG PO DAILY Prescribed by: RO WEST on 11/14/22938 Lisinopril (Lisinopril) 20 Mg Tablet, 40 MG PO DAILY Prescribed by: RO WEST on 11/14/22938 [thickener] , EA PO AC, (DME) Prescribed by: RO WEST on 11/14/22 0941 Review of Systems Review of Systems Constitutional: No fever EENTM: No Symptoms Reported Respiratory: No Symptoms Reported Cardiovascular: No Symptoms Reported Gastrointestinal: See HPI Genitourinary: No Symptoms Reported Musculoskeletal: no symptoms reported Skin: no symptoms reported Psychiatric/Neurological: No Symptoms Reported Endocrine: No Symptoms Reported Past Dyebktp-Zbqjno-Hfltps Hx Patient Social History Tobacco Use?: Yes Smoking Status: Light Tobacco Smoker Use of E-Cig and/or Vaping dev: No Use of E-Cig and/or Vaping Thong: Never a User Substance use?: No Alcohol Use?: No Pt feels they are or have been: No Seasonal Allergies Seasonal Allergies: No Past Medical History Surgeries: No Respiratory: Yes COPD Cardiac: Yes High Cholesterol, Hypertension Neurological: Yes TIA Genitourinary: No Gastrointestinal: No Musculoskeletal: No Endocrine: Yes Diabetes, Non-Insulin dep HEENT: No Loss of Vision: Denies Hearing Impairment: Denies Cancer: No Psychosocial: No Integumentary: No Blood Disorders: No Family Medical History Diabetes, GI Disease, Hypertension Physical Exam Vital Signs Capillary Refill : Height/Weight/BMI Height: 5'2.00" Weight: 313lbs. oz. [id number]; 58.00 BMI Method:Stated General Appearance: WD/WN, no apparent distress HEENT: PERRL/EOMI, normal ENT inspection, pharynx normal Neck: non-tender, full range of motion, supple, normal inspection Respiratory: chest non-tender, lungs clear, normal breath sounds, no respiratory distress, no accessory muscle use Cardiovascular: regular rate, rhythm, no edema, no murmur Gastrointestinal: normal bowel sounds, non tender, soft Rectal: hemorrhoids, other (rectum with numerous hard balls of stool) Back: normal inspection 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: alert, normal mood/affect, oriented x 3 Skin: normal color, warm/dry Progress/Results/Core Measures Progress Progress Note : Progress Note 37-year-old female with above history coming in due to constipation. ABCs were intact and vitals were stable on presentation. Physical exam mostly with fecal impaction in her rectum. I did manually disimpact her since she had been attempting it at home, but her arms are too short and she could not reach her rectum well based on her size. She had bleeding hemorrhoids prior to the procedure. There was a minimal amount of bleeding after. Patient tolerated the procedure well. Afterwards she was discharged home in stable condition with strict return precautions Departure Impression Primary Impression: Fecal impaction in rectum Disposition: 01 HOME, SELF-CARE Condition: Improved Departure-Patient Inst. Decision time for Depature: 17:45 Referrals: JAQCUELIN WIGGINS APRN (PCP) Primary Care Physician [facility] (Family) Primary Care Physician Patient Instructions: Constipation, Adult (DC), Fecal Impaction (DC), How to Do a Sitz Bath Add. Discharge Instructions: There could be more hard balls of stool. If this occurs again, try again to use your finger to try to get out the stool. Increase your dose of MiraLAX to effect. Expect blood in your stools from that hemorrhoid. We also recommend doing some sitz bath's. LUIS MURILLO MD Nov 21, 2022 17:37
[2022-11-21 17:40] VITALS: BP 149/89
== END 2022-11-21 17:40 | disposition home or self-care (01) ==
LOC: EDUNIT# 17:11 → ER FS 17:13
DX: K56.41 Fecal impaction (principal); F17.200 Nicotine dependence, unspecified, uncomplicated
CPT/HCPCS: 99283

== ENCOUNTER 2022-12-23 09:18 | Outpatient (CLI) | payer BC ==
[~2022-12-23] VITALS: Ht 157.5 cm; Wt 147.4 kg
[2022-12-23] MEDS ORDERED: AMLO-250 PO (10:40)
[2022-12-23] MEDS ORDERED: ASPI-999 PO (10:40)
[2022-12-23] MEDS ORDERED: LISI40TA9 PO (10:40)
[2022-12-23] MEDS ORDERED: ATOR40TA70 PO (10:40)
[2022-12-23] MEDS ORDERED: DOCU100T7 PO (10:42)
[2022-12-23] MEDS ORDERED: MELA1TAB72 PO (10:42)
== END 2022-12-23 10:45 | disposition home or self-care (01) ==
LOC: PREOP 09:18
PROVIDERS: ATTEND Surgery
DX: Z01.818 Encounter for other preprocedural examination (principal)

== ENCOUNTER 2023-01-01 10:19 | Day surgery (SDC) | payer BC ==
[~2023-01-01] VITALS: Ht 157.5 cm; Wt 147.4 kg
[~2023-01-01 10:19] MED LIST changes: +ASPI-999 PO; +ATOR40TA70 PO; +DOCU100T7 PO; +LISI40TA9 PO; +MELA1TAB72 PO
[2023-01-01] MEDS ORDERED: LACTATED RINGERS 1,000 ML 1,000 ML IV STA (10:28)
[2023-01-01] MEDS ORDERED: HURRICAINE EXT TUBE (BENZOCAINE) XX PRN (10:30)
--- NOTE | 2023-01-01 10:44 | Progress Note-Pre Operative ---
Pre-Operative Progress Note Date of Available H&P: Dec 22, 2022 Date H&P Reviewed: Jan 01, 2023 Time H&P Reviewed: 10:40 History & Physical: H&P Reviewed, Patient Examed, No changes noted Changes from last HP pt is complaining of more dysphagia and is asking about "throat stretching" Pre-Operative Diagnosis: Esophageal Ulcers, dysphagia RAJENDRA COLLINS DO Jan 01, 2023 10:44
[2023-01-01 11:07] VITALS: BP 115/63
[2023-01-01] MEDS ORDERED: proPOfol INJECTION 200 MG/20 ML VIAL IV ONE (12:03)
[2023-01-01] MEDS ORDERED: MIDAZOLAM INJ 2 MG/2 ML VIAL ONE (12:21)
--- NOTE | 2023-01-01 12:42 | Progress Note-Post Operative ---
Post-Operative Progess Note Surgeon (s)/Compliance Counsel (s) Surgeon RAJENDRA COLLINS DO Compliance Counsel: none Pre-Operative Diagnosis Esophageal Ulcers, dysphagia Post-Operative Diagnosis Gastritis Hiatal Hernia Esophagitis Procedure & Operative Findings Date of Procedure 01/01/23 Procedure Performed/Findings EGD with biopsy PROCEDURE NOTE: After informed consent was obtained, the patient was brought to the endoscopy suite, placed in bed in left lateral decubitus position. She was administered IV sedation by the [place]AP[place] PROFESSOR who then monitored vitals the entire time, heart rate, blood pressure and pulse ox and the scope was inserted down the mouth through the esophagus into the stomach. On the way down, noted some mild esophagitis, took a picture, pushed into the stomach, noted some gastritis, pushed past the antrum and into the duodenum. Duodenum looked good. Pulled back and did a biopsy of the antrum, then retroflexed the scope, saw small Grade II AFS hiatal hernia and took a picture. I then pulled the scope into the GE junction, took another picture of what looked like some esophagitis and then did a biopsy of the GE junction. Pushed the scope back into the stomach, suctioned all the air out of the stomach. At this point pulled the scope up the esophagus, while doing this I did not encounter any strictures and therefore no need for dilation. I took some pictures of the upper esophagus and pulled the scope out of her mouth. The patient tolerated the procedure, and she recovered in endoscopy suite. Anesthesia Type IV sedation by [place]ESE PROFESSOR Estimated Blood Loss Estimated blood loss (mL): scant Specimens/Packing Specimens Removed antral bx body of stomach bx GE jxn bx RAJENDRA COLLINS DO Jan 01, 2023 12:42
--- NOTE | 2023-01-01 12:44 | Endoscopy Discharge Instruct ---
Endo Procedure/Findings Findings 1.: Gastritis 2.: Hiatal Hernia Discharge Instructions - Activity: You might feel a little sleepy until tomorrow. This is due to the medicine you received to relax you. Until tomorrow, you should: NOT drive a car, operate machinery or power tools. NOT drink any alcoholic beverages. NOT make any important decisions or sign importortant papers. Do not return to work until tomorrow, unless otherwise instructed. Resume previous activities tomorrow. Diet: Start by taking liquids. If you tolerate liquids, advance to solid food. 1.: EGD in 3 years Notify Physician - If you experience excessive bleeding, unusual abdominal pain, fever, or chest pain, contact your doctor immediately. Follow-Up: Other Follow up in my office in one week RAJENDRA COLLINS DO Jan 01, 2023 12:44
[2023-01-01 12:46] VITALS: BP 104/56
[2023-01-01 12:50] VITALS: BP 104/56
--- NOTE | 2023-01-01 12:55 | Anesthesia-General Post-Op ---
MAC Patient Condition Mental Status/LOC: Same as Preop Cardiovascular: Satisfactory Nausea/Vomiting: Absent Respiratory: Satisfactory Pain: Controlled Complications: Absent Post Op Complications Complications None Follow Up Care/Instructions Patient Instructions None needed. Anesthesiology Discharge Order Discharge Order Patient is doing well, no complaints, stable vital signs, no apparent adverse anesthesia problems. No complications reported per nursing. SHANTHI TO CRNA Jan 01, 2023 12:54
[2023-01-01 13:15] VITALS: BP 124/76
[2023-01-01 13:28] VITALS: BP 124/76
== END 2023-01-01 13:28 | disposition home or self-care (01) ==
LOC: ENDO 10:19
PROVIDERS: ATTEND Surgery
DX: K29.70 Gastritis, unspecified, without bleeding (principal); K44.9 Diaphragmatic hernia without obstruction or gangrene; K21.00 Gastro-esophageal reflux disease with esophagitis, without bleeding; K31.89 Other diseases of stomach and duodenum; E66.01 Morbid (severe) obesity due to excess calories; G47.33 Obstructive sleep apnea (adult) (pediatric); Z87.891 Personal history of nicotine dependence; Z68.43 Body mass index [BMI] 50.0-59.9, adult
CPT/HCPCS: 84703; 88305